=== PATIENT | male | born 1975 | race Caucasian/White ===

== ENCOUNTER 2017-05-20 15:04 | Outpatient (CLI) | payer MEDICAID | END 2017-05-20 15:05 | disposition critical access hospital (66) | LOC: EMS 15:04 | PROVIDERS: ATTEND Surgery | DX: R51 Headache (principal); R07.9 Chest pain, unspecified | CPT/HCPCS: A0425; A0427 ==

== ENCOUNTER 2017-05-20 15:37 | Emergency (ER) | payer MEDICAID ==
--- NOTE | 2017-05-20 16:14 | ED Physician Documentation ---
History of Present Illness - Stated complaint Stated Complaint: DIABETIC - Chief complaint Chief Complaint: General - History obtained from History obtained from: Patient (pt states that today he had episodes wher ethe left side fo his head was"going numb" and "tingling". states that it started a couple hours prior to arrival, states that he had some tingling to his left arm. states that he has been feeling "bad" for the past several months. states that he has had problems with keeping his blood sugar undercontrol.) Review of Systems Constitutional: reports: Chills, Fatigue. denies: Fever Eyes: denies: Loss of vision Cardiac: denies: Chest pain / pressure, Palpitations Respiratory: denies: Dyspnea GI: reports: Nausea. denies: Abdominal Pain, Vomiting, Constipation, Diarrhea : denies: Dysuria Skin: denies: Rash, Lesions Musculoskeletal: reports: Other (left arm numbness). denies: Neck pain, Back pain, Joint swelling Neurologic: reports: Other (left side of his head tingling.). denies: Generalized weakness, Headache PD PAST MEDICAL HISTORY - Past Medical History Cardiovascular: None Respiratory: None Neuro: Headache/migraine, Peripheral neuropathy Endocrine/Autoimmune: Type 1 diabetes GI: GERD : None HEENT: None Psych: Depression, Anxiety, Panic attacks Musculoskeletal: Osteoporosis, Chronic back pain Derm: None - Past Surgical History Past Surgical History: Yes General: Appendectomy, Colonoscopy Ortho: Rotator cuff repair Derm: Debridement - Present Medications Home Medications: Ambulatory Orders Medication Instructions Recorded Confirmed Gabapentin 300 mg PO ACHS 06/18/15 11/12/16 Insulin Glargine [Lantus Solostar] 18 unit SQ DAILY 06/18/15 11/12/16 Multivit-Min/Iron Fum/Folic AC 1 tab PO DAILY 06/18/15 11/12/16 [Pniwi-Qssodgy-Miyuxpsk Tablet] Pantoprazole [Protonix] 40 mg PO DAILY 06/18/15 11/12/16 Insulin Lispro [Humalog] 1 each .ROUTE .FREQ 09/22/15 11/12/16 diazePAM [Valium] 5 mg PO BID PRN #15 tablet 09/22/15 11/12/16 Azithromycin [Zithromax] 250 mg PO DAILY #6 tablet 11/12/16 Cephalexin [Keflex] 500 mg PO TID #21 capsule 11/16/16 Mupirocin 1 applic TP TID #15 oint...g. 11/16/16 Sulfamethox/Trimeth 800/160 1 each PO BID #14 tablet 11/16/16 [Bactrim Ds 800/160] - Allergies Allergies/Adverse Reactions: Allergies Allergy/AdvReac Type Severity Reaction Status Date / Time No Known Drug Allergies Allergy Verified 05/20/17 15:46 - Social History Does the pt smoke?: Yes Smoking Status: Current every day smoker Does the pt drink ETOH?: Yes Does the pt have substance abuse?: No - Immunizations Immunizations are current?: Yes - POLST Patient has POLST: No PD ED PE NORMAL - Vitals Vital signs reviewed: Yes - General General: Alert and oriented X 3, No acute distress - HEENT HEENT: Atraumatic, Ears normal, Moist mucous membranes, Pharynx benign - Neck Neck: Supple, no meningeal sign - Cardiac Cardiac: RRR, No murmur, No gallop - Respiratory Respiratory: No respiratory distress, Clear bilaterally - Abdomen Abdomen: Soft, Non tender - Back Back: No CVA TTP - Derm Derm: Normal color, Warm and dry, No rash - Extremities Extremities: No deformity, No edema - Neuro Neuro: Alert and oriented X 3, 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, No motor deficit, No sensory deficit, Normal speech Eye Opening: Spontaneous Motor: Obeys Commands Verbal: Oriented GCS Score: 15 - Psych Psych: Normal mood, Normal affect Results - Vitals Vitals: Vital Signs - 24 hr 05/20/17 05/20/17 05/20/17 15:41 17:36 18:55 Temperature 37.0 C Heart Rate 116 H 92 82 Respiratory 18 16 16 Rate Blood Pressure 136/95 H 108/68 114/80 O2 Saturation 98 97 100 05/20/17 20:29 Temperature Heart Rate 81 Respiratory 18 Rate Blood Pressure 123/81 H O2 Saturation 100 Oxygen O2 Source Room air - EKG (time done) 1543 Rate: Rate (enter#) Rhythm: Sinus tachycardia [place]: Normal Intervals: Normal [place], QRS normal QRS: Normal Ischemia: Normal ST segments - Labs Labs: Laboratory Tests 05/20/17 05/20/17 05/20/17 16:20 16:20 16:20 WBC 6.3 RBC 5.04 Hgb 14.6 Hct 44.2 MCV 87.7 MCH 29.0 MCHC 33.0 RDW 13.2 Plt Count 200 MPV 8.3 Neut # 4.1 Lymph # 1.5 Rock # 0.5 Eos # 0.1 Baso # 0.0 Absolute Nucleated RBC 0.00 Nucleated RBC % 0.0 Sodium 133 L Potassium 4.0 Chloride 97 L Carbon Dioxide 24 Anion Gap 12.0 BUN 13 Creatinine 0.6 Estimated GFR (MDRD) 148 Glucose 390 H POC Whole Bld Glucose Lactic Acid 0.9 Calcium 9.1 Phosphorus 3.4 Magnesium 1.7 Total Bilirubin 0.9 AST 15 ALT 20 Alkaline Phosphatase 69 Total Creatine Kinase 157 Total Protein 7.0 Albumin 4.2 Globulin 2.8 Albumin/Globulin Ratio 1.5 Lipase 16 L Urine Color Urine Clarity Urine pH Ur Specific [place] Urine Protein Urine Glucose (UA) Urine Ketones Urine Occult Blood Urine Nitrite Urine Bilirubin Urine Urobilinogen Ur Leukocyte Esterase Ur Microscopic Review Urine Culture Comments Serum Ketones 05/20/17 05/20/17 05/20/17 16:20 17:20 19:11 WBC RBC Hgb Hct MCV MCH MCHC RDW Plt Count MPV Neut # Lymph # Rock # Eos # Baso # Absolute Nucleated RBC Nucleated RBC % Sodium Potassium Chloride Carbon Dioxide Anion Gap BUN Creatinine Estimated GFR (MDRD) Glucose POC Whole Bld Glucose 245 H Lactic Acid Calcium Phosphorus Magnesium Total Bilirubin AST ALT Alkaline Phosphatase Total Creatine Kinase Total Protein Albumin Globulin Albumin/Globulin Ratio Lipase Urine Color YELLOW Urine Clarity CLEAR Urine pH 6.0 Ur Specific [place] 1.010 Urine Protein NEGATIVE Urine Glucose (UA) >=1000 H Urine Ketones NEGATIVE Urine Occult Blood NEGATIVE Urine Nitrite NEGATIVE Urine Bilirubin NEGATIVE Urine Urobilinogen 0.2 (NORMAL) Ur Leukocyte Esterase NEGATIVE Ur Microscopic Review NOT INDICATED Urine Culture Comments NOT INDICATED Serum Ketones SMALL H - Rads (name of study) Head CT Radiology: Final report received (no acute process), EMP read contemporaneously CXR Radiology: Final report received (no acute changes), EMP read contemporaneously PD MEDICAL DECISION MAKING - ED course Complexity details: reviewed results, re-evaluated patient, considered differential, d/w patient ED course: pt not in DKA, no sings of CVA, is hyperglycemic but inproved with fluids. pt reports improvement with fluids. discussed with him. CXR because he has been having pain off an on on that side for 5 months and he was concerned for cancer. discussed with him. he will contact his primary care provider for a follow up. Departure - Departure Disposition: 01 Home, Self Care Clinical Impression: Diabetes, Facial paresthesia Condition: Good Instructions: Hyperglycemia Follow-Up: primary, care provider [Other] Comments: Recommend that you contact a primary care provider in the this area to help with your blood sugar management. Return to the ER for any new or worsening symptoms.
[2017-05-20] MEDS ORDERED: SODIUM CHLORIDE 0.9% 1,000 ML IV ONE ×2 (16:15→17:39)
[2017-05-20 16:31] LABS: BASOPHILS % (AUTO) 0.5 %; EOSINOPHILS # (AUTO) 0.1 10^3/uL (0.0-0.7); EOSINOPHILS % (AUTO) 1.7 %; HGB - HEMOGLOBIN 14.6 g/dL (14.0-18.0); LYMPHOCYTES # (AUTO) 1.5 10^3/uL (1.5-3.5); LYMPHOCYTES % (AUTO) 23.9 %; MEAN CORPUSCULAR VOLUME 87.7 fL (80.0-94.0); MEAN PLATELET VOLUME 8.3 fL (7.4-11.4); MONOCYTES # (AUTO) 0.5 10^3/uL (0.0-1.0); MONOCYTES % (AUTO) 7.8 %; NEUTROPHILS # (AUTO) 4.1 10^3/uL (1.5-6.6); NEUTROPHILS % (AUTO) 66.1 %; PLT - PLATELET COUNT 200 10^3/uL (130-450); RED BLOOD COUNT 5.04 10^6/uL (4.70-6.10); RED CELL DISTRIBUTION WIDTH 13.2 % (12.0-15.0); WHITE BLOOD COUNT 6.3 x10^3/uL (4.8-10.8)
[2017-05-20 16:48] LABS: ALBUMIN 4.2 g/dL (3.2-5.5); ALBUMIN/GLOBULIN RATIO 1.5 (1.0-2.2); BILIRUBIN,TOTAL 0.9 mg/dL (0.2-1.0); CALCIUM 9.1 mg/dL (8.5-10.3); CREATININE 0.6 mg/dL (0.6-1.2); MAGNESIUM 1.7 mg/dL (1.7-2.8); PHOSPHORUS 3.4 mg/dL (2.5-4.6)
--- NOTE | 2017-05-20 16:48 | CT Report ---
EXAM: CT HEAD EXAM DATE: 05/20/2017 04:37 PM. CLINICAL HISTORY: Left sided numb. COMPARISON: 11/04/2014. TECHNIQUE: Multiaxial CT images were obtained from the foramen magnum to the vertex. Reformats: Coron al. IV contrast: None. In accordance with CT protocol optimization, one or more of the following dose reduction techniques w ere utilized for this exam: automated exposure control, adjustment of mA and/or KV based on patient s ize, or use of iterative reconstructive technique. FINDINGS: Parenchyma: No intraparenchymal hemorrhage. No evidence of mass, midline shift, or CT findings of inf arction. Plaza-white differentiation is distinct. Extraaxial Spaces: Normal for age. No subdural or epidural collections identified. Ventricles: Normal in size and position. Sinuses and Orbits: Imaged paranasal sinuses, orbits, and mastoids show no significant abnormality. Bones: No evidence of fracture or calvarial defect. Other: None. IMPRESSION: No acute intracranial abnormality. [facility] Referring Provider Line: [phone] SITE ID: [id number]
[2017-05-20 17:34] LABS: BILIRUBIN,URINE NEGATIVE (NEGATIVE); GLUCOSE, URINE (UA) >=1000 mg/dL (NEGATIVE); KETONES,URINE (UA) NEGATIVE (NEGATIVE); LEUKOCYTE ESTERASE, URINE NEGATIVE (NEGATIVE); NITRITE,URINE NEGATIVE (NEGATIVE); OCCULT BLOOD,URINE NEGATIVE (NEGATIVE); PROTEIN,URINE NEGATIVE (NEGATIVE); UROBILINOGEN,URINE 0.2 (NORMAL) E.U./dL (NORMAL)
[2017-05-20 17:39] LABS: CLARITY,URINE CLEAR (CLEAR)
--- NOTE | 2017-05-20 20:12 | XRAY Report ---
EXAM: CHEST RADIOGRAPHY EXAM DATE: 05/20/2017 07:50 PM. CLINICAL HISTORY: Cough. COMPARISON: None. TECHNIQUE: 2 views. FINDINGS: Lungs/Pleura: No focal opacities evident. No pleural effusion. No pneumothorax. Normal volumes. Mediastinum: Heart and mediastinal contours are unremarkable. Other: None. IMPRESSION: No acute intrathoracic plain film abnormality. [facility] Referring Provider Line: [phone] SITE ID: [id number]
[2017-05-20 20:29] VITALS: BP 123/81
== END 2017-05-20 20:52 | disposition home or self-care (01) ==
LOC: EDUNIT# → ED 15:37
DX: E10.42 Type 1 diabetes mellitus with diabetic polyneuropathy (principal); R00.0 Tachycardia, unspecified; F17.200 Nicotine dependence, unspecified, uncomplicated
CPT/HCPCS: 36415; 70450; 71046; 80053; 81001; 81003; 82009; 82550; 83605; 83690; 83735; 84100; 85025; 87086; 93005; 96360; 96361; 99284

== ENCOUNTER 2018-04-22 10:38 | Emergency (ER) | payer MEDICAID ==
[2018-04-22 10:47] VITALS: BP 149/93
--- NOTE | 2018-04-22 12:26 | ED Physician Documentation ---
History of Present Illness - Stated complaint Stated Complaint: PX ON BOTTOM OF FOOT/CONGESTION - Chief complaint Chief Complaint: Ext Problem - History obtained from History obtained from: Patient - History of Present Illness Timing: How many weeks ago (1) - Additonal information Additional information: 43-year-old male with a long-standing history of diabetes presents with a wound to the bottom of the left foot that he noticed approximately a week ago. Feels it is getting infected now. Has turned red. He tore a callus off the top of it last night. Also for the last 4 days has had rhinorrhea, congestion and a dry cough. No fevers. No vomiting. States his blood sugars are normally high anyway but it was up to 380 today which is not uncommon for him when he has an infection. Review of Systems Constitutional: denies: Fever, Chills Nose: reports: Rhinorrhea / runny nose, Congestion Respiratory: reports: Cough GI: denies: Vomiting Skin: denies: Rash Musculoskeletal: denies: Neck pain, Back pain Neurologic: denies: Headache PD PAST MEDICAL HISTORY - Past Medical History Cardiovascular: None Respiratory: None Endocrine/Autoimmune: Type 1 diabetes GI: GERD : None HEENT: None Psych: Depression, Anxiety, Panic attacks Musculoskeletal: Osteoporosis, Chronic back pain Derm: None - Past Surgical History Past Surgical History: Yes General: Appendectomy, Colonoscopy Ortho: Rotator cuff repair Derm: Debridement - Present Medications Home Medications: Ambulatory Orders Medication Instructions Recorded Confirmed Gabapentin 300 mg PO ACHS 06/18/15 11/12/16 Insulin Glargine [Lantus Solostar] 18 unit SQ DAILY 06/18/15 11/12/16 Insulin Lispro [Humalog] 1 each .ROUTE .FREQ 09/22/15 11/12/16 Cephalexin [Keflex] 500 mg PO Q6H #28 capsule 04/22/18 Pregabalin [Lyrica] 04/22/18 Sulfamethox/Trimeth 800/160 1 each PO BID #14 tablet 04/22/18 [Bactrim Ds 800/160] - Allergies Allergies/Adverse Reactions: Allergies Allergy/AdvReac Type Severity Reaction Status Date / Time No Known Drug Allergies Allergy Verified 04/22/18 10:47 - Social History Does the pt smoke?: Yes Smoking Status: Current every day smoker Does the pt drink ETOH?: Yes Does the pt have substance abuse?: No - Immunizations Immunizations are current?: Yes - POLST Patient has POLST: No PD ED PE NORMAL - Vitals Vital signs reviewed: Yes - General General: Alert and oriented X 3, No acute distress - HEENT HEENT: Moist mucous membranes, Pharynx benign, Other - Neck Neck: Supple, no meningeal sign - Cardiac Cardiac: RRR - Respiratory Respiratory: No respiratory distress, Clear bilaterally - Abdomen Abdomen: Soft, Non tender, Non distended - Derm Derm: Warm and dry - Extremities Extremities: Other (1cm, callus to the bottom of the foot between 4th adn 5th digits. mild erythema, no induration.) - Neuro Neuro: Alert and oriented X 3 Results - Vitals Vitals: Vital Signs - 24 hr 04/22/18 10:41 Temperature 36.3 C L Heart Rate 93 Respiratory 16 Rate Blood Pressure 149/93 H O2 Saturation 100 Oxygen O2 Source Room air PD MEDICAL DECISION MAKING - ED course Complexity details: considered differential, d/w patient ED course: 43-year-old diabetic male with what appears to be an early diabetic foot ulcer. Will start on Bactrim and Keflex and follow-up closely with his doctor. Also appears to have a viral upper respiratory infection. No evidence of pneumonia clinically. He is well-appearing, nontoxic. No evidence of sepsis. Patient counseled regarding signs and symptoms for which I believe and urgent re- evaluation would be necessary. Patient with good understanding of and agreement to plan and is comfortable going home at this time This document was made in part using voice recognition software. While efforts are made to proofread this document, sound alike and grammatical errors may occur. Departure - Departure Disposition: 01 Home, Self Care Clinical Impression: Viral URI Diabetic foot ulcer Qualifiers: Diabetic foot ulcer location: midfoot Diabetes mellitus type: type 1 Laterality: left Non-pressure ulcer stage: limited to breakdown of skin Qualified Code(s): E10.621 - Type 1 diabetes mellitus with foot ulcer Condition: Good Instructions: ED Foot Care Diabetic, ED URI Viral Follow-Up: your,doctor in 1 week [Other] Prescriptions: Cephalexin [Keflex] 500 mg PO Q6H #28 capsule Sulfamethox/Trimeth 800/160 [Bactrim Ds 800/160] 1 each PO BID #14 tablet Comments: Take all antibiotics until gone. Return if you worsen. It is important you follow-up with your doctor for further evaluation of your foot. You need to be rechecked within the next week.
== END 2018-04-22 12:41 | disposition home or self-care (01) ==
LOC: ED 10:38
DX: J06.9 Acute upper respiratory infection, unspecified (principal); B97.89 Other viral agents as the cause of diseases classified elsewhere; E10.621 Type 1 diabetes mellitus with foot ulcer; F17.200 Nicotine dependence, unspecified, uncomplicated
CPT/HCPCS: 99283

== ENCOUNTER 2018-06-14 19:11 | Emergency (ER) | payer MEDICAID ==
[2018-06-14 20:56] LABS: ALBUMIN 4.1 g/dL (3.2-5.5); ALBUMIN/GLOBULIN RATIO 1.4 (1.0-2.2); BASOPHILS # (AUTO) 0.2 10^3/uL (0.0-0.1); BASOPHILS % (AUTO) 2.6 %; BILIRUBIN,TOTAL 0.7 mg/dL (0.2-1.0); CALCIUM 9.1 mg/dL (8.5-10.3); CREATININE 0.8 mg/dL (0.6-1.2); EOSINOPHILS # (AUTO) 0.2 10^3/uL (0.0-0.7); EOSINOPHILS % (AUTO) 2.2 %; HGB - HEMOGLOBIN 14.3 g/dL (14.0-18.0); LYMPHOCYTES % (AUTO) 21.4 %; MEAN CORPUSCULAR HEMOGLOBIN 30.8 pg (27.0-31.0); MEAN CORPUSCULAR HGB CONC 34.5 g/dL (32.0-36.0); MEAN CORPUSCULAR VOLUME 89.1 fL (80.0-94.0); MEAN PLATELET VOLUME 8.4 fL (7.4-11.4); MONOCYTES # (AUTO) 0.7 10^3/uL (0.0-1.0); MONOCYTES % (AUTO) 7.8 %; NEUTROPHILS # (AUTO) 6.1 10^3/uL (1.5-6.6); PLT - PLATELET COUNT 168 10^3/uL (130-450); RED BLOOD COUNT 4.65 10^6/uL (4.70-6.10); RED CELL DISTRIBUTION WIDTH 13.3 % (12.0-15.0); TOTAL PROTEIN 7.1 g/dL (6.7-8.2); WHITE BLOOD COUNT 9.3 x10^3/uL (4.8-10.8)
--- NOTE | 2018-06-14 21:18 | XRAY Report ---
Reason: DM foot infection Procedure Date: 06/14/2018 Accession Number: [id number] / [id number] Procedure: XR - Foot 3 View LT CPT Code: FULL RESULT: EXAM: LEFT FOOT RADIOGRAPHY EXAM DATE: 06/14/2018 08:49 PM. CLINICAL HISTORY: Diabetic foot infection COMPARISON: None. TECHNIQUE: 3 views. FINDINGS: Bones: No fracture or focal bony lesion. Joints: No evidence of dislocation. Soft Tissues: There are vascular calcifications. There is rounded lucency which may represent soft tissue defect projecting over the plantar soft tissues of the distal lateral foot. IMPRESSION: No evidence of fracture or focal bony lesion. [facility]
[2018-06-14 21:34] LABS: DIFFERENTIAL COMMENT MANUAL=AUTO DIFF; PLATELET ESTIMATE, MANUAL NORMAL (130-450,000) (NORMAL); PLATELET MORPHOLOGY NORMAL APPEARANCE (NORMAL); RBC MORPHOLOGY (MULTIPLE) NORMAL APPEARANCE (NORMAL)
[2018-06-14] MEDS ORDERED: CIPROFLOXACIN 250 MG TABLET PO STA (21:50)
[2018-06-14] MEDS ORDERED: HYDROcod/ACET 5/325 Prepack 4 PO STA (21:50)
--- NOTE | 2018-06-14 21:53 | ED Physician Documentation ---
PD HPI WOUND RECHECK - Stated complaint Stated Complaint: BLACK SKIN ON FOOT - Chief complaint Chief Complaint: Wound - Histroy obtained from History obtained from: Patient, Family - History of Present Illness Location: Other (This is a long-standing type I diabetic who has had an ulcer on the left foot for several months now. He was on what sounds like Augmentin around [place]. He has an appoint with a fire protection engineer this Wednesday but he started to have increased redness and swelling of the foot today.) Review of Systems Constitutional: denies: Fever, Chills Cardiac: reports: Reviewed and negative Respiratory: reports: Reviewed and negative GI: reports: Reviewed and negative PD PAST MEDICAL HISTORY - Past Medical History Cardiovascular: None Respiratory: None Endocrine/Autoimmune: Type 1 diabetes GI: GERD : None HEENT: None Psych: Depression, Anxiety, Panic attacks Musculoskeletal: Osteoporosis, Chronic back pain Derm: None - Past Surgical History Past Surgical History: Yes General: Appendectomy, Colonoscopy Ortho: Rotator cuff repair Derm: Debridement - Present Medications Home Medications: Ambulatory Orders Medication Instructions Recorded Confirmed Insulin Glargine [Lantus Solostar] 18 unit SQ DAILY 06/18/15 11/12/16 RX: Gabapentin 300 mg PO ACHS 06/18/15 11/12/16 Insulin Lispro [Humalog] 1 each .ROUTE .FREQ 09/22/15 11/12/16 Cephalexin [Keflex] 500 mg PO Q6H #28 capsule 04/22/18 Pregabalin [Lyrica] 04/22/18 Sulfamethox/Trimeth 800/160 1 each PO BID #14 tablet 04/22/18 [Bactrim Ds 800/160] Ciprofloxacin HCl [Cipro] 500 mg PO BID #20 tablet 06/14/18 Hydrocodone/Acetaminophen 1 - 2 each PO Q6H PRN #7 tablet 06/14/18 [Hydrocodon-Acetaminophen 5-325] - Allergies Allergies/Adverse Reactions: Allergies Allergy/AdvReac Type Severity Reaction Status Date / Time No Known Drug Allergies Allergy Verified 06/14/18 19:23 - Social History Does the pt smoke?: Yes Smoking Status: Current every day smoker Does the pt drink ETOH?: Yes Does the pt have substance abuse?: No - Immunizations Immunizations are current?: Yes - POLST Patient has POLST: No PD ED PE NORMAL - Vitals Vital signs reviewed: Yes - General General: Alert and oriented X 3, No acute distress - Extremities Extremities: Other (There is a heaped up callus on the bottom of the left foot near the fourth metatarsal head. It is somewhat tender but there is no drainage. There is no gangrene. There is mild cellulitis just of the distal metatarsals.) - Neuro Neuro: Alert and oriented X 3, Normal speech Results - Vitals Vitals: Vital Signs - 24 hr 06/14/18 06/14/18 06/14/18 19:18 20:30 22:09 Temperature 37.6 C H 37.0 C Heart Rate 97 89 82 Respiratory 17 16 16 Rate Blood Pressure 123/79 127/80 125/74 O2 Saturation 100 100 100 Oxygen O2 Source Room air - Labs Labs: Laboratory Tests 06/14/18 06/14/18 06/14/18 20:39 20:39 20:39 WBC 9.3 RBC 4.65 L Hgb 14.3 Hct 41.4 L MCV 89.1 MCH 30.8 MCHC 34.5 RDW 13.3 Plt Count 168 MPV 8.4 Neut # (Auto) 6.1 Lymph # (Auto) 2.0 [place] # (Auto) 0.7 Eos # (Auto) 0.2 Baso # (Auto) 0.2 H Absolute Nucleated RBC 0.01 Band Neuts % (Manual) Not Reportable Abnorm Lymph % (Manual) Not Reportable Nucleated RBC % 0.1 Neutrophils # (Manual) Not Reportable Lymphocytes # (Manual) Not Reportable Monocytes # (Manual) Not Reportable Eosinophils # (Manual) Not Reportable Basophils # (Manual) Not Reportable Differential Comment MANUAL=AUTO DIFF Manual Slide Review Indicated Platelet Estimate NORMAL (130-450,000) Platelet Morphology NORMAL APPEARANCE RBC Morph Micro Appear NORMAL APPEARANCE ESR 2 Sodium 136 Potassium 4.2 Chloride 100 L Carbon Dioxide 28 Anion Gap 8.0 BUN 17 Creatinine 0.8 Estimated GFR (MDRD) 106 Glucose 323 H Calcium 9.1 Total Bilirubin 0.7 AST 13 ALT 21 Alkaline Phosphatase 91 C-Reactive Protein Total Protein 7.1 Albumin 4.1 Globulin 3.0 Albumin/Globulin Ratio 1.4 Lipase 19 L 06/14/18 20:39 WBC RBC Hgb Hct MCV MCH MCHC RDW Plt Count MPV Neut # (Auto) Lymph # (Auto) [place] # (Auto) Eos # (Auto) Baso # (Auto) Absolute Nucleated RBC Band Neuts % (Manual) Abnorm Lymph % (Manual) Nucleated RBC % Neutrophils # (Manual) Lymphocytes # (Manual) Monocytes # (Manual) Eosinophils # (Manual) Basophils # (Manual) Differential Comment Manual Slide Review Platelet Estimate Platelet Morphology RBC Morph Micro Appear ESR Sodium Potassium Chloride Carbon Dioxide Anion Gap BUN Creatinine Estimated GFR (MDRD) Glucose Calcium Total Bilirubin AST ALT Alkaline Phosphatase C-Reactive Protein < 1.0 Total Protein Albumin Globulin Albumin/Globulin Ratio Lipase - Rads (name of study) L foot Radiology: EMP read contemporaneously (STS, no obvious osteo) PD MEDICAL DECISION MAKING - ED course ED course: This is a 43-year-old gentleman with long-standing diabetes who has what appears to be a mild diabetic foot infection with reassuring inflammatory markers and a foot x-ray without evidence of deep involvement. He is placed on Cipro and he has an appointment with a fire protection engineer this week. Departure - Departure Disposition: 01 Home, Self Care Clinical Impression: Diabetic foot ulcer Qualifiers: Diabetic foot ulcer location: midfoot Diabetes mellitus type: type 1 Laterality: left Non-pressure ulcer stage: limited to breakdown of skin Qualified Code(s): E10.621 - Type 1 diabetes mellitus with foot ulcer Condition: Good Record reviewed to determine appropriate education?: Yes Prescriptions: Ciprofloxacin HCl [Cipro] 500 mg PO BID #20 tablet Hydrocodone/Acetaminophen [Hydrocodon-Acetaminophen 5-325] 1 - 2 each PO Q6H PRN #7 tablet PRN Reason: pain Comments: Followup with the fire protection engineer as scheduled later this week. Return if worse redness, fevers, uncontrolled pain. Discharge Date/Time: 06/14/18 22:10
[2018-06-14 22:10] VITALS: BP 125/74
== END 2018-06-14 22:10 | disposition home or self-care (01) ==
LOC: ED 19:11
DX: E10.621 Type 1 diabetes mellitus with foot ulcer (principal); L97.421 Non-pressure chronic ulcer of left heel and midfoot limited to breakdown of skin; Z79.4 Long term (current) use of insulin; L03.116 Cellulitis of left lower limb; L84 Corns and callosities; F17.200 Nicotine dependence, unspecified, uncomplicated
CPT/HCPCS: 36415; 73630; 80053; 83690; 85025; 85651; 86140; 99283; A9270

== ENCOUNTER 2018-06-15 19:24 | Inpatient (IN) | payer MEDICAID ==
[2018-06-15] MEDS ORDERED: PIPERACILLIN/TAZOBACTAM 3.375 GM in SODIUM CHLORIDE 0.9% MINIBAG 100 ML IV STA (20:19)
[2018-06-15] MEDS ORDERED: VANCOMYCIN INJ 1.5 GM in SODIUM CHLORIDE 0.9% 500 ML IV STA (20:19)
--- NOTE | 2018-06-15 20:21 | ED Physician Documentation ---
History of Present Illness - Stated complaint Stated Complaint: LT FOOT PX - Chief complaint Chief Complaint: General - History obtained from History obtained from: Patient, Family - History of Present Illness Timing: Today (This is a 43-year-old gentleman with long-standing type 1 diabetes who I saw yesterday for a diabetic left foot infection he was placed on Cipro. At that time his labs were very normal. Today he is become much sicker with fevers body aches and an area on the foot opened up and is draining foul- smelling fluid. Pain is uncontrolled.) Review of Systems Ten Systems: 10 systems reviewed and negative Constitutional: reports: Fever, Chills, Myalgias, Fatigue Throat: reports: Reviewed and negative Cardiac: reports: Reviewed and negative Respiratory: reports: Reviewed and negative PD PAST MEDICAL HISTORY - Past Medical History Cardiovascular: None Respiratory: None Endocrine/Autoimmune: Type 1 diabetes GI: GERD : None HEENT: None Psych: Depression, Anxiety, Panic attacks Musculoskeletal: Osteoporosis, Chronic back pain Derm: None - Past Surgical History Past Surgical History: Yes General: Appendectomy, Colonoscopy Ortho: Rotator cuff repair Derm: Debridement - Present Medications Home Medications: Ambulatory Orders Medication Instructions Recorded Confirmed Gabapentin 300 mg PO ACHS 06/18/15 11/12/16 Insulin Glargine [Lantus Solostar] 18 unit SQ DAILY 06/18/15 11/12/16 Insulin Lispro [Humalog] 1 each .ROUTE .FREQ 09/22/15 11/12/16 Cephalexin [Keflex] 500 mg PO Q6H #28 capsule 04/22/18 Pregabalin [Lyrica] 04/22/18 Sulfamethox/Trimeth 800/160 1 each PO BID #14 tablet 04/22/18 [Bactrim Ds 800/160] Ciprofloxacin HCl [Cipro] 500 mg PO BID #20 tablet 06/14/18 Hydrocodone/Acetaminophen 1 - 2 each PO Q6H PRN #7 tablet 06/14/18 [Hydrocodon-Acetaminophen 5-325] - Allergies Allergies/Adverse Reactions: Allergies Allergy/AdvReac Type Severity Reaction Status Date / Time No Known Drug Allergies Allergy Verified 06/15/18 19:35 - Social History Does the pt smoke?: Yes Smoking Status: Current every day smoker Does the pt drink ETOH?: Yes Does the pt have substance abuse?: No - Family History Family history: reports: Non contributory - Immunizations Immunizations are current?: Yes - POLST Patient has POLST: No PD ED PE NORMAL - Vitals Vital signs reviewed: Yes - General General: Alert and oriented X 3, No acute distress - HEENT HEENT: PERRL, EOMI - Neck Neck: Supple, no meningeal sign, No bony TTP - Cardiac Cardiac: RRR, No murmur - Respiratory Respiratory: No respiratory distress, Clear bilaterally - Abdomen Abdomen: Normal bowel sounds, Soft, Non tender - Back Back: No CVA TTP - Derm Derm: Normal color, Warm and dry - Extremities Extremities: Other (He still has a callus on the bottom of the foot near the fourth metatarsal head, there is a draining sinus in the webspace between the fourth and fifth toes that is freely draining foul-smelling fluid that was cultured during examination.) - Neuro Neuro: Alert and oriented X 3, Normal speech Results - Vitals Vitals: Vital Signs - 24 hr 06/15/18 06/15/18 19:31 19:47 Temperature 37.6 C H 37.0 C Heart Rate 125 H 115 H Respiratory 17 16 Rate Blood Pressure 164/97 H 144/91 H O2 Saturation 99 100 Oxygen O2 Source Room air - Labs Labs: Laboratory Tests 06/15/18 06/15/18 06/15/18 20:30 20:30 20:30 WBC 13.6 H RBC 5.07 Hgb 15.4 Hct 45.2 MCV 89.2 MCH 30.4 MCHC 34.0 RDW 13.5 Plt Count 179 MPV 8.8 Neut # (Auto) 10.1 H Lymph # (Auto) 2.0 [place] # (Auto) 1.1 H Eos # (Auto) 0.2 Baso # (Auto) 0.1 Absolute Nucleated RBC 0.00 Nucleated RBC % 0.0 ESR Sodium 137 Potassium 4.0 Chloride 98 L Carbon Dioxide 27 Anion Gap 12.0 BUN 16 Creatinine 0.8 Estimated GFR (MDRD) 106 Glucose 256 H Lactic Acid 1.7 Calcium 9.9 Total Bilirubin 0.6 AST 20 ALT 23 Alkaline Phosphatase 100 C-Reactive Protein Total Protein 8.5 H Albumin 4.9 Globulin 3.6 Albumin/Globulin Ratio 1.4 Lipase 19 L 06/15/18 06/15/18 20:30 20:30 WBC RBC Hgb Hct MCV MCH MCHC RDW Plt Count MPV Neut # (Auto) Lymph # (Auto) [place] # (Auto) Eos # (Auto) Baso # (Auto) Absolute Nucleated RBC Nucleated RBC % ESR 1 Sodium Potassium Chloride Carbon Dioxide Anion Gap BUN Creatinine Estimated GFR (MDRD) Glucose Lactic Acid Calcium Total Bilirubin AST ALT Alkaline Phosphatase C-Reactive Protein 1.6 H Total Protein Albumin Globulin Albumin/Globulin Ratio Lipase PD MEDICAL DECISION MAKING - ED course ED course: This is a 43-year-old gentleman with a diabetic foot infection, his labs yesterday were normal and he was discharged home on Cipro, he returns today now with fever, Rigors and worsening inflammatory markers. Case was discussed by phone with Dominic Abebe, the on-call orthopedist who recommends admission to the hospitalist for potential MRI tomorrow to guide operative planning. He was cultured up and placed on Zosyn and vancomycin. I spoke with the hospitalist, Dr. Mayo for admission at 9 PM. Departure - Departure Disposition: [facility] DC/Xfer Clinical Impression: Foot abscess, left Diabetes Qualifiers: Diabetes mellitus type: type 1 Diabetes mellitus complication status: with hyperglycemia Qualified Code(s): E10.65 - Type 1 diabetes mellitus with hyperglycemia Condition: Serious
[2018-06-15] MEDS ORDERED: HYDROmorphone 1 MG/ML CARPUJECT IVP STA ×2 (20:23→21:30)
[2018-06-15] MEDS ORDERED: HYDROcod/ACET 5/325 Prepack 4 PO STA (20:25)
[2018-06-15 20:42] LABS: BASOPHILS # (AUTO) 0.1 10^3/uL (0.0-0.1); BASOPHILS % (AUTO) 0.6 %; EOSINOPHILS # (AUTO) 0.2 10^3/uL (0.0-0.7); EOSINOPHILS % (AUTO) 1.5 %; HGB - HEMOGLOBIN 15.4 g/dL (14.0-18.0); MEAN CORPUSCULAR HEMOGLOBIN 30.4 pg (27.0-31.0); MEAN CORPUSCULAR VOLUME 89.2 fL (80.0-94.0); MEAN PLATELET VOLUME 8.8 fL (7.4-11.4); MONOCYTES # (AUTO) 1.1 10^3/uL (0.0-1.0); MONOCYTES % (AUTO) 8.2 %; NEUTROPHILS # (AUTO) 10.1 10^3/uL (1.5-6.6); NEUTROPHILS % (AUTO) 74.7 %; PLT - PLATELET COUNT 179 10^3/uL (130-450); RED BLOOD COUNT 5.07 10^6/uL (4.70-6.10); RED CELL DISTRIBUTION WIDTH 13.5 % (12.0-15.0); WHITE BLOOD COUNT 13.6 x10^3/uL (4.8-10.8)
[2018-06-15 20:55] LABS: ALBUMIN 4.9 g/dL (3.2-5.5); ALBUMIN/GLOBULIN RATIO 1.4 (1.0-2.2); BILIRUBIN,TOTAL 0.6 mg/dL (0.2-1.0); CALCIUM 9.9 mg/dL (8.5-10.3); CREATININE 0.8 mg/dL (0.6-1.2); TOTAL PROTEIN 8.5 g/dL (6.7-8.2)
[2018-06-15] MEDS ORDERED: ACETAMINOPHEN 325 MG TABLET PO PRN (21:09)
--- NOTE | 2018-06-15 21:23 | HISTORY & PHYSICAL EXAMINATION ---
Chief Complaint - Chief Complaint Chief Complaint: Persistent left foot pain with swelling and foul smelling drainage History of Present Illness - Admitted From Admitted From:: Home - History Obtained From Records Reviewed: Yes History obtained from: Patient and ED staff Exam Limitations: None - History of Present Illness HPI Comment/Other: This is a 43-year-old gentleman with long-standing type 1 diabetes, HTN with macro/micro complications (retinopathy, nephropathy and neuropathy) who was seen by ED yesterday for a diabetic left foot infection for which he was placed on Cipro At that time his labs were very normal. Today he is become much sicker with fevers body aches and an area on the foot opened up and is draining foul- smelling fluid. Blood and wound cultures were obtained. Pain is uncontrolled as well as sugars with a glucose of 256. WBC was 13.6, tachycardic at 125 and slightly hypertensive. Initial temp 37.6. Patient was started on empiric IV abx. Dr. Abebe from ortho consulted for possible underlying osteomyelitis to his left diabetic foot with an abscess formation and cellulites likely requiring surgical intervention. History - Past Medical History Cardiovascular: reports: None Respiratory: reports: None Endocrine/Autoimmune: reports: Type 1 diabetes GI: reports: GERD : reports: None HEENT: reports: None Psych: reports: Depression, Anxiety, Panic attacks Musculoskeletal: reports: Osteoporosis, Chronic back pain Derm: reports: None MRSA Hx?: No - Past Surgical History General: reports: Appendectomy, Colonoscopy Ortho: reports: Rotator cuff repair Neuro: reports: Other (IDDM neuropathy) Derm: reports: Debridement - POLST Patient has POLST: No Meds/Allgy - Home Medications Home Medications: Ambulatory Orders Medication Instructions Recorded Confirmed Gabapentin 300 mg PO ACHS 06/18/15 11/12/16 Insulin Glargine [Lantus Solostar] 18 unit SQ DAILY 06/18/15 11/12/16 Insulin Lispro [Humalog] 1 each .ROUTE .FREQ 09/22/15 11/12/16 Cephalexin [Keflex] 500 mg PO Q6H #28 capsule 04/22/18 Pregabalin [Lyrica] 04/22/18 Sulfamethox/Trimeth 800/160 1 each PO BID #14 tablet 04/22/18 [Bactrim Ds 800/160] Ciprofloxacin HCl [Cipro] 500 mg PO BID #20 tablet 06/14/18 Hydrocodone/Acetaminophen 1 - 2 each PO Q6H PRN #7 tablet 06/14/18 [Hydrocodon-Acetaminophen 5-325] - Allergies Allergies/Adverse Reactions: Allergies Allergy/AdvReac Type Severity Reaction Status Date / Time No Known Drug Allergies Allergy Verified 06/15/18 19:35 Review of Systems - Constitutional Constitutional: reports: Fatigue, Weakness, Poor appetite, Night sweats - Ears, Nose & Throat Ears, Nose & Throat: denies: Tinnitus, Vertigo - Cardiovascular Cariovascular: reports: Edema. denies: Irregular heart rate, Palpitations, Chest pain, Lightheadedness, Exertional dyspnea - Respiratory Respiratory: denies: Cough, Wheezing, Orthopnea, SOB at rest - Gastrointestinal Gastrointestinal: denies: Abdominal distention, Constipation, Change in bowel habits, Black stools, Nausea, Vomiting, Coffee grounds emesis, Reflux/heartburn - Genitourinary Genitourinary: denies: Dysuria, Frequency, Urgency, Incontinence, Flank pain, Nocturia - Musculoskeletal Musculoskeletal: reports: Muscle weakness, Joint swelling. denies: Muscle pain, Muscle aches, Stiffness, Gout, Joint pain - Integumentary Integumentary: reports: Rash (left foot), Lesions, Pigment changes - Neurological Neurological: denies: General weakness, Dizziness, Memory problems, Slurred speech - Psychiatric Psychiatric: denies: Depression, Anxiety, Hallucinations - Endocrine Endocrine: reports: Polyuria, Polydypsia, Polyphagia. denies: Intolerance to heat - Hematologic/Lymphatic Hematologic/Lymphatic: denies: Anemia, Blood clots, Lymphadenopathy Prior Level of Functionality: Independent to home ADL's Exam - Vital Signs Reviewed Vital Signs: Yes Vital Signs: Vital Signs x48h Temp Pulse Resp BP Pulse Ox 06/15/18 19:47 37.0 C 115 H 16 144/91 H 100 06/15/18 19:31 37.6 C H 125 H 17 164/97 H 99 - Physical Exam General Appearance: positive: No acute distress, Alert, Anxious Eyes Bilateral: positive: Normal inspection, PERRL, EOMI ENT: positive: ENT inspection nml, Pharynx nml, No signs of dehydration Neck: positive: Nml inspection, Thyroid nml, No JVD, Trachea midline. negative: Thyromegaly Respiratory: positive: Chest non-tender, No respiratory distress, Breath sounds nml Cardiovascular: positive: Regular rate & rhythm, No murmur, No gallop, Tachycardia. negative: JVD present Peripheral Pulses: positive: 1+ Abdomen: positive: Non-tender, No organomegaly, Nml bowel sounds, No distention. negative: Tenderness Skin: positive: Warm, Other (Left dorsum erythematous lesion. left ulceration to 4th/5th space/abscess formation with foul-smelling purulent drainage) Extremities: positive: Full ROM, Joint swelling, Other (Tender over plantar surface with 2x2 cm callus formation with apparant left 5th digit tenderness on manipulation. Dorsum of left foot erythematous.) Neurologic/Psychiatric: positive: Oriented x3, CN's nml (2-12), Sensory loss (to plantar aspect BLLE). negative: Slurred/abnml speech, Depressed mood/affect Sepsis Event Note (H) - Evaluation Current Stage of Sepsis: Sepsis Possible source of Sepsis: positive: Skin/soft tissue Confirmed Source and Organism (if known) of Sepsis: Left non-healing foot ulcer with abscess formation and possible underlying chronic osteomyelitis - Sepsis Criteria Sepsis Criteria: Recorded Heart Rate greater than 90 bpm (CRP 1.6), WBC count greater than 12,000 or less than 4000 Conclusion/Plan - Problem List (1) Sepsis Conclusion/Plan: Secondary to diabetic foot abscess with suspected underlying chronic osteomyelitis. Would continue "ear;y-goal directed" treatment with IV abx's, fluids, pain control and follow up on blood and wound cultures taken in ED. MRI of left foot in am to determine extent of soft tissue, bone infection if present. Surgical debridement likely anticipated. Qualifiers: Sepsis type: sepsis due to unspecified organism Qualified Code(s): A41.9 - Sepsis, unspecified organism (2) Chronic osteomyelitis Conclusion/Plan: Left foot chronic osteomyelitis suspected due to patients chronicity of months of left foot pain with associated non-healing diabetic foot ulcer between the 4th/5th digit with now foul-smelling purulent drainage. MRI in am to definitively show evidence for this, ESR, CRP ordered. On empiric IV abx zosyn and vanco to cover for MRSA/MSSA and anaerobes. Wound culture to follow from purulent drainage of wound site. (3) Diabetes mellitus, insulin dependent (IDDM), uncontrolled Conclusion/Plan: Patient saw PCP in early may with a HgbA1c of approximately 10%, ws 10.3 back in 06/01/15, uncontrolled and with now glycemic excursions in the setting of left foot abscess and pain which are causing hyperglycemic excursions. Would place back on his Lantus solostar 18 units sq daily along with correctional ISS high dose for bolus coverage. Diabetic education and teaching, dietitian consult placed. Qualifiers: Glycemic state: with hyperglycemia Qualified Code(s): E10.65 - Type 1 diabetes mellitus with hyperglycemia (4) Left foot pain Conclusion/Plan: Place on morphine and oxycodone for break-through pain. Has underlying "painful" Diabetic neuropathy for which he takes gabapentin, would titrate to therapeutic goal. (5) Diabetic neuropathy associated with type 1 diabetes mellitus Conclusion/Plan: Resume Neurontin and titrate to therapeutic goal. Qualifiers: Diabetes mellitus complication detail: diabetic polyneuropathy Qualified Code(s): E10.42 - Type 1 diabetes mellitus with diabetic polyneuropathy (6) HTN (hypertension) Conclusion/Plan: Place on lopressor or GENA-inh with existing DM nephropathy to control for BP excursions which likely are infectious/pain-induced. (7) Foot abscess, left Conclusion/Plan: Likely will require incision, drainage and debridement of infectious tissue and dependent on MRI result if osteomyelitis is present may need amputation of affected bone. Wound cultures as well as blood cultures to follow. Wound care consult will be placed. Empiric IV abx's to continue, pharm consult for vanco dosing. Pain control, glycemic control. (8) Tobacco dependence Conclusion/Plan: Chronic pipe-tobacco use. Likely contributing to his poor circulation and compounding his healing process of his left foot cellulitis/abscess. Would educate and sales counselor on smoking cessation and offer nicotine replacement tx. - Lab Results Fish Bones: 06/15/18 20:30 06/15/18 20:30 - EKG Results EKG Interpreted Independently: No Core Measures - Anticipated LOS I expect patient to be DC'd or transferred within 96 hours.: Yes - Issues Hospital Issues and Management Plan: IV abx's, fluids, glycemic control, surgical I/D/D needed. - DVT/VTE - Prophylaxis VTE/DVT Device ordered at admit?: Yes VTE/DVT Prophylaxis med ordered at admit?: Yes - Stroke - Rehab Assessment Rehab services assessment to be ordered?: No Not Ordered - Medical Reason: Not indicated - AMI - Statin at Admit Aspirin Prescribed on Admit: Yes
[2018-06-15] MEDS ORDERED: ASPIRIN CHEW 81 MG TABLET PO STA (21:31)
[2018-06-15] MEDS ORDERED: NICOTINE 21 MG PATCH TOP STA (21:35)
[2018-06-15 21:57] LABS: HB2 TOTAL 16.6 g/dL; HEMOGLOBIN A1C 1.41 g/dL; HEMOGLOBIN A1C % 9.9 % (4.6-6.2)
[2018-06-15] MEDS: METOPROLOL TARTRATE 25 MG TABLET PO SCH (22:52)
[2018-06-15] MEDS: SODIUM CHLORIDE 0.9% 1,000 ML IV SCH (22:52)
[2018-06-15] MEDS: MORPHINE 2 MG/ML CARPUJECT IVP PRN (22:52)
[2018-06-15] MEDS: INSULIN ASPART 300 UNIT/3 ML PEN SUBQ SCH (23:20)
[2018-06-15] MEDS: GABAPENTIN 300 MG CAPSULE PO SCH (23:54)
[2018-06-16] MEDS: MORPHINE 2 MG/ML CARPUJECT IVP PRN ×3 (01:11→04:38)
[2018-06-16] MEDS: SODIUM CHLORIDE FLUSH 0.9% 10 ML SYRINGE IVP SCH ×3 (01:17→17:12)
[2018-06-16] MEDS: PIPERACILLIN/TAZOBACTAM 4.5 GM in SODIUM CHLORIDE 0.9% MINIBAG 100 ML IV SCH ×4 (02:23→21:14)
[2018-06-16] MEDS: oxyCODONE 5 MG TABLET PO PRN ×3 (04:43→12:10)
[2018-06-16 06:02] LABS: BASOPHILS % (AUTO) 0.6 %; EOSINOPHILS # (AUTO) 0.2 10^3/uL (0.0-0.7); EOSINOPHILS % (AUTO) 2.5 %; HGB - HEMOGLOBIN 13.7 g/dL (14.0-18.0); LYMPHOCYTES # (AUTO) 2.2 10^3/uL (1.5-3.5); LYMPHOCYTES % (AUTO) 26.5 %; MEAN CORPUSCULAR HEMOGLOBIN 29.8 pg (27.0-31.0); MEAN CORPUSCULAR HGB CONC 32.5 g/dL (32.0-36.0); MEAN CORPUSCULAR VOLUME 91.5 fL (80.0-94.0); MONOCYTES # (AUTO) 0.8 10^3/uL (0.0-1.0); MONOCYTES % (AUTO) 9.7 %; NEUTROPHILS % (AUTO) 60.7 %; PLT - PLATELET COUNT 153 10^3/uL (130-450); RED CELL DISTRIBUTION WIDTH 13.4 % (12.0-15.0); WHITE BLOOD COUNT 8.2 x10^3/uL (4.8-10.8)
[2018-06-16 06:14] LABS: CHOL/HDL RATIO 2.8 (<5.0); CHOLESTEROL 115 mg/dL; HDL CHOLESTEROL 41 mg/dL; LDL CHOLESTEROL,CALCULATED 58 mg/dL; LDL/HDL RATIO 1.4 (<3.6); VLDL CHOLESTEROL 16 mg/dL
[2018-06-16 06:45] LABS: ALBUMIN 3.7 g/dL (3.2-5.5); CALCIUM 8.6 mg/dL (8.5-10.3); CREATININE 0.6 mg/dL (0.6-1.2); PHOSPHORUS 3.4 mg/dL (2.5-4.6)
[2018-06-16] MEDS: GABAPENTIN 300 MG CAPSULE PO SCH ×4 (06:59→21:49)
[2018-06-16] MEDS: HYDROmorphone 1 MG/ML SYRINGE IVP PRN ×2 (06:59→11:38)
[2018-06-16] MEDS ORDERED: GABAPENTIN 300 MG CAPSULE PO SCH (07:00)
--- NOTE | 2018-06-16 07:51 | PROVIDER PROGRESS NOTE ---
Subjective - Prog Note Date Prog Note Date: 06/16/18 Prog Note Time: 07:49 - Subjective Subjective: saw a boiler operators supervisor thru [employer] for 5 years when lived in [place] who used a drill to get rid of calluses. Then came here 4 years ago and saw [facility] boiler operators supervisor who didn't believe in that. Then one didn't take his insurance. Has a new appt with one in [facility]. Occasionally looks at this feet. A1c has not been below 7% ever. DM has been for 30 years. Painful neuropathy. 2 laser surgeries for eyes. Willing to go on dialysis. Smokes tobacco. Occasionally drinks. No recreational abuse. Checks sugars 6 times. Counts carbs. Stays on fixed dose of lantus and goes up and down on short acting. Dr. Van Zafar is coming of lantus for him bc getting more lows. 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 This is his first diabetic foot infection. Current Medications - Current Medications Current Medications: Active Medications Acetaminophen (Tylenol) 650 mg PO Q4HR PRN PRN Reason: Pain 1 to 4 Last Admin: 06/16/18 02:23 Dose: 650 mg Atorvastatin Calcium (Lipitor) 40 mg PO QPM FELA Duloxetine HCl (Cymbalta) 60 mg PO QPM FELA Enoxaparin Sodium (Lovenox) 40 mg SUBQ DAILY FELA Famotidine (Pepcid) 20 mg PO BID FELA Gabapentin (Neurontin) 600 mg PO ACHS [facility] Last Admin: 06/16/18 06:59 Dose: 600 mg Hydromorphone HCl (Dilaudid Inj Syringe) 2 mg IVP Q2H PRN PRN Reason: PAIN Last Admin: 06/16/18 06:59 Dose: 2 mg Piperacillin Sod/Tazobactam (Sod 4.5 gm/ Sodium Chloride) 100 mls @ 200 mls/hr IV Q6H [facility] Last Infusion: 06/16/18 03:00 Dose: Infused Sodium Chloride (Normal Saline 0.9%) 1,000 mls @ 75 mls/hr IV .[id number] [facility] Last Infusion: 06/16/18 07:00 Dose: 75 mls/hr Vancomycin HCl 1.5 gm/ Sodium (Chloride) 500 mls @ 250 mls/hr IV Q12H [facility] Insulin Aspart (Novolog) 3 - 11 unit SUBQ 0800,1200,1700,2100 [facility]; Protocol Last Admin: 06/15/18 23:20 Dose: 5 unit Insulin Glargine (Lantus Solostar) 18 unit SUBQ DAILY [facility] Metoprolol Tartrate (Lopressor) 12.5 mg PO BID [facility] Last Admin: 06/15/18 22:52 Dose: 12.5 mg Ondansetron HCl (Zofran Odt) 4 mg TL Q6HR PRN PRN Reason: Nausea / Vomiting Oxycodone HCl (Roxicodone) 5 mg PO Q4HR PRN PRN Reason: Pain 5 to 7 Last Admin: 06/16/18 04:43 Dose: 5 mg Polyethylene Glycol (Miralax) 17 gm PO DAILY [facility] Prochlorperazine Edisylate (Compazine Inj) 10 mg IVP Q6HR PRN PRN Reason: Nausea / Vomiting Sodium Chloride (Normal Saline Flush 0.9%) 10 ml IVP PRN PRN PRN Reason: NEEDED PER PROVIDER ORDERS Sodium Chloride (Normal Saline Flush 0.9%) 10 ml IVP 0100,0900,1700 [facility] Last Admin: 06/16/18 01:17 Dose: Not Given Gabapentin 300 mg PO ACHS 06/18/15 Insulin Glargine [Lantus Solostar] 18 unit SQ DAILY 06/18/15 Insulin Lispro [Humalog] 1 each .ROUTE .FREQ 09/22/15 Pregabalin [Lyrica] 04/22/18 Objective - Vital Signs/Intake & Output Reviewed Vital Signs: Yes Vital Signs: Vital Signs x48h Temp Pulse Resp BP Pulse Ox 06/16/18 07:02 79 11 L 124/89 H 100 06/16/18 06:00 75 10 L 123/77 100 06/16/18 05:00 77 12 132/88 H 100 06/16/18 04:00 76 10 L 111/67 99 06/16/18 03:00 36.8 C 76 14 109/68 99 06/16/18 02:00 73 13 112/75 99 06/16/18 01:00 84 14 124/82 H 100 06/16/18 00:00 89 17 110/91 H 100 Intake & Output: Intake & Output 06/13/18 06/14/18 06/15/18 06/16/18 23:59 23:59 23:59 23:59 Intake Total 100 1666.25 Output Total 800 600 Balance -700 1066.25 - Objective General Appearance: positive: Alert, Other (Thin, cachectic male is 6 feet 2 inches tall 68 kg. Disheveled appearance with a long untrimmed deshpande to goes down to his lower sternum.) Eyes Bilateral: positive: PERRL, EOMI ENT: positive: Pharynx nml, Other (Poor dentition) Neck: positive: No JVD. negative: Stiff neck, Carotid bruit Respiratory: positive: Chest non-tender. negative: Wheezes, Rales, Rhonchi Cardiovascular: positive: Regular rate & rhythm. negative: Gallop/S4, Friction rub Abdomen: positive: Non-tender, No organomegaly, Nml bowel sounds, No distention Skin: positive: Warm, Dry Extremities: positive: Full ROM, No pedal edema, Other ( remember the name the webspace between his fourth and fifth toe left foot is draining. There is a little bit of redness that goes up approximately toward the tib-fib area but is only up to one third of the foot. While there is superficial edema surrounding this puncture area, there is no ascending cellulitis, of the ankle around the malleoli is not edematous. He can plantar and dorsiflex his left foot.) Neurologic/Psychiatric: positive: Oriented x3, CN's nml (2-12), Motor nml. negative: Sensation nml (Burning prickly paresthesias of feet and hands) - Lab Results Fish Bones: 06/16/18 05:10 06/16/18 05:10 Other Labs: Lab Results x24hrs 06/16/18 06/16/18 06/16/18 Range/Units 05:10 05:10 05:10 WBC (4.8-10.8) x10^3/uL RBC (4.70-6.10) 10^6/uL Hgb (14.0-18.0) g/dL Hct (42.0-52.0) % MCV (80.0-94.0) fL MCH (27.0-31.0) pg MCHC (32.0-36.0) g/dL RDW (12.0-15.0) % Plt Count (130-450) 10^3/uL MPV (7.4-11.4) fL Neut # (Auto) (1.5-6.6) 10^3/uL Lymph # (Auto) (1.5-3.5) 10^3/uL [place] # (Auto) (0.0-1.0) 10^3/uL Eos # (Auto) (0.0-0.7) 10^3/uL Baso # (Auto) (0.0-0.1) 10^3/uL Absolute Nucleated RBC x10^3/uL Nucleated RBC % /100WBC ESR 7 (0-15) mm/Hr Sodium 135 (135-145) mmol/L Potassium 3.6 (3.5-5.0) mmol/L Chloride 98 L (101-111) mmol/L Carbon Dioxide 29 (21-32) mmol/L Anion Gap 8.0 (6-13) BUN 12 (6-20) mg/dL Creatinine 0.6 (0.6-1.2) mg/dL Estimated GFR (MDRD) 148 (>89) Glucose 195 H (70-100) mg/dL POC Whole Bld Glucose (70 - 100) mg/dL Glycated Hemoglobin (4.6-6.2) % Estim Average Glucose (70-100) Lactic Acid (0.5-2.2) mmol/L Calcium 8.6 (8.5-10.3) mg/dL Phosphorus 3.4 (2.5-4.6) mg/dL Iron 37 L (45-182) ug/dL TIBC 252 (250-450) ug/dL % Saturation 15 L (20-50) % Transferrin 180 (180-329) mg/dL Total Bilirubin (0.2-1.0) mg/dL AST (10-42) IU/L ALT (10-60) IU/L Alkaline Phosphatase (42-121) IU/L C-Reactive Protein (0-1.0) mg/dL Total Protein (6.7-8.2) g/dL Albumin 3.7 (3.2-5.5) g/dL Globulin (2.1-4.2) g/dL Albumin/Globulin Ratio (1.0-2.2) Triglycerides 82 ( - 149) mg/dL Cholesterol 115 ( - 199) mg/dL LDL Cholesterol, Calc 58 ( - 129) mg/dL VLDL Cholesterol 16 mg/dL HDL Cholesterol 41 L (60 - ) mg/dL LDL/HDL Ratio 1.4 (<3.6) Cholesterol/HDL Ratio 2.8 (<5.0) Lipase (22-51) U/L Influenza A (Rapid) (Negative) Influenza B (Rapid) (Negative) MRSA Surveill Initial (NEGATIVE) 06/16/18 06/15/18 06/15/18 Range/Units 05:10 22:57 22:00 WBC 8.2 (4.8-10.8) x10^3/uL RBC 4.60 L (4.70-6.10) 10^6/uL Hgb 13.7 L (14.0-18.0) g/dL Hct 42.1 (42.0-52.0) % MCV 91.5 (80.0-94.0) fL MCH 29.8 (27.0-31.0) pg MCHC 32.5 (32.0-36.0) g/dL RDW 13.4 (12.0-15.0) % Plt Count 153 (130-450) 10^3/uL MPV 9.0 (7.4-11.4) fL Neut # (Auto) 5.0 (1.5-6.6) 10^3/uL Lymph # (Auto) 2.2 (1.5-3.5) 10^3/uL [place] # (Auto) 0.8 (0.0-1.0) 10^3/uL Eos # (Auto) 0.2 (0.0-0.7) 10^3/uL Baso # (Auto) 0.0 (0.0-0.1) 10^3/uL Absolute Nucleated RBC 0.01 x10^3/uL Nucleated RBC % 0.1 /100WBC ESR (0-15) mm/Hr Sodium (135-145) mmol/L Potassium (3.5-5.0) mmol/L Chloride (101-111) mmol/L Carbon Dioxide (21-32) mmol/L Anion Gap (6-13) BUN (6-20) mg/dL Creatinine (0.6-1.2) mg/dL Estimated GFR (MDRD) (>89) Glucose (70-100) mg/dL POC Whole Bld Glucose 183 H (70 - 100) mg/dL Glycated Hemoglobin (4.6-6.2) % Estim Average Glucose (70-100) Lactic Acid (0.5-2.2) mmol/L Calcium (8.5-10.3) mg/dL Phosphorus (2.5-4.6) mg/dL Iron (45-182) ug/dL TIBC (250-450) ug/dL % Saturation (20-50) % Transferrin (180-329) mg/dL Total Bilirubin (0.2-1.0) mg/dL AST (10-42) IU/L ALT (10-60) IU/L Alkaline Phosphatase (42-121) IU/L C-Reactive Protein (0-1.0) mg/dL Total Protein (6.7-8.2) g/dL Albumin (3.2-5.5) g/dL Globulin (2.1-4.2) g/dL Albumin/Globulin Ratio (1.0-2.2) Triglycerides ( - 149) mg/dL Cholesterol ( - 199) mg/dL LDL Cholesterol, Calc ( - 129) mg/dL VLDL Cholesterol mg/dL HDL Cholesterol (60 - ) mg/dL LDL/HDL Ratio (<3.6) Cholesterol/HDL Ratio (<5.0) Lipase (22-51) U/L Influenza A (Rapid) (Negative) Influenza B (Rapid) (Negative) MRSA Surveill Initial NEGATIVE (NEGATIVE) 06/15/18 06/15/18 06/15/18 Range/Units 20:30 20:30 20:30 WBC (4.8-10.8) x10^3/uL RBC (4.70-6.10) 10^6/uL Hgb (14.0-18.0) g/dL Hct (42.0-52.0) % MCV (80.0-94.0) fL MCH (27.0-31.0) pg MCHC (32.0-36.0) g/dL RDW (12.0-15.0) % Plt Count (130-450) 10^3/uL MPV (7.4-11.4) fL Neut # (Auto) (1.5-6.6) 10^3/uL Lymph # (Auto) (1.5-3.5) 10^3/uL [place] # (Auto) (0.0-1.0) 10^3/uL Eos # (Auto) (0.0-0.7) 10^3/uL Baso # (Auto) (0.0-0.1) 10^3/uL Absolute Nucleated RBC x10^3/uL Nucleated RBC % /100WBC ESR 1 (0-15) mm/Hr Sodium (135-145) mmol/L Potassium (3.5-5.0) mmol/L Chloride (101-111) mmol/L Carbon Dioxide (21-32) mmol/L Anion Gap (6-13) BUN (6-20) mg/dL Creatinine (0.6-1.2) mg/dL Estimated GFR (MDRD) (>89) Glucose (70-100) mg/dL POC Whole Bld Glucose (70 - 100) mg/dL Glycated Hemoglobin 9.9 H (4.6-6.2) % Estim Average Glucose 237 H (70-100) Lactic Acid (0.5-2.2) mmol/L Calcium (8.5-10.3) mg/dL Phosphorus (2.5-4.6) mg/dL Iron (45-182) ug/dL TIBC (250-450) ug/dL % Saturation (20-50) % Transferrin (180-329) mg/dL Total Bilirubin (0.2-1.0) mg/dL AST (10-42) IU/L ALT (10-60) IU/L Alkaline Phosphatase (42-121) IU/L C-Reactive Protein 1.6 H (0-1.0) mg/dL Total Protein (6.7-8.2) g/dL Albumin (3.2-5.5) g/dL Globulin (2.1-4.2) g/dL Albumin/Globulin Ratio (1.0-2.2) Triglycerides ( - 149) mg/dL Cholesterol ( - 199) mg/dL LDL Cholesterol, Calc ( - 129) mg/dL VLDL Cholesterol mg/dL HDL Cholesterol (60 - ) mg/dL LDL/HDL Ratio (<3.6) Cholesterol/HDL Ratio (<5.0) Lipase (22-51) U/L Influenza A (Rapid) (Negative) Influenza B (Rapid) (Negative) MRSA Surveill Initial (NEGATIVE) 06/15/18 06/15/18 06/15/18 Range/Units 20:30 20:30 20:30 WBC 13.6 H (4.8-10.8) x10^3/uL RBC 5.07 (4.70-6.10) 10^6/uL Hgb 15.4 (14.0-18.0) g/dL Hct 45.2 (42.0-52.0) % MCV 89.2 (80.0-94.0) fL MCH 30.4 (27.0-31.0) pg MCHC 34.0 (32.0-36.0) g/dL RDW 13.5 (12.0-15.0) % Plt Count 179 (130-450) 10^3/uL MPV 8.8 (7.4-11.4) fL Neut # (Auto) 10.1 H (1.5-6.6) 10^3/uL Lymph # (Auto) 2.0 (1.5-3.5) 10^3/uL [place] # (Auto) 1.1 H (0.0-1.0) 10^3/uL Eos # (Auto) 0.2 (0.0-0.7) 10^3/uL Baso # (Auto) 0.1 (0.0-0.1) 10^3/uL Absolute Nucleated RBC 0.00 x10^3/uL Nucleated RBC % 0.0 /100WBC ESR (0-15) mm/Hr Sodium 137 (135-145) mmol/L Potassium 4.0 (3.5-5.0) mmol/L Chloride 98 L (101-111) mmol/L Carbon Dioxide 27 (21-32) mmol/L Anion Gap 12.0 (6-13) BUN 16 (6-20) mg/dL Creatinine 0.8 (0.6-1.2) mg/dL Estimated GFR (MDRD) 106 (>89) Glucose 256 H (70-100) mg/dL POC Whole Bld Glucose (70 - 100) mg/dL Glycated Hemoglobin (4.6-6.2) % Estim Average Glucose (70-100) Lactic Acid 1.7 (0.5-2.2) mmol/L Calcium 9.9 (8.5-10.3) mg/dL Phosphorus (2.5-4.6) mg/dL Iron (45-182) ug/dL TIBC (250-450) ug/dL % Saturation (20-50) % Transferrin (180-329) mg/dL Total Bilirubin 0.6 (0.2-1.0) mg/dL AST 20 (10-42) IU/L ALT 23 (10-60) IU/L Alkaline Phosphatase 100 (42-121) IU/L C-Reactive Protein (0-1.0) mg/dL Total Protein 8.5 H (6.7-8.2) g/dL Albumin 4.9 (3.2-5.5) g/dL Globulin 3.6 (2.1-4.2) g/dL Albumin/Globulin Ratio 1.4 (1.0-2.2) Triglycerides ( - 149) mg/dL Cholesterol ( - 199) mg/dL LDL Cholesterol, Calc ( - 129) mg/dL VLDL Cholesterol mg/dL HDL Cholesterol (60 - ) mg/dL LDL/HDL Ratio (<3.6) Cholesterol/HDL Ratio (<5.0) Lipase 19 L (22-51) U/L Influenza A (Rapid) (Negative) Influenza B (Rapid) (Negative) MRSA Surveill Initial (NEGATIVE) 06/15/18 Range/Units 20:22 WBC (4.8-10.8) x10^3/uL RBC (4.70-6.10) 10^6/uL Hgb (14.0-18.0) g/dL Hct (42.0-52.0) % MCV (80.0-94.0) fL MCH (27.0-31.0) pg MCHC (32.0-36.0) g/dL RDW (12.0-15.0) % Plt Count (130-450) 10^3/uL MPV (7.4-11.4) fL Neut # (Auto) (1.5-6.6) 10^3/uL Lymph # (Auto) (1.5-3.5) 10^3/uL [place] # (Auto) (0.0-1.0) 10^3/uL Eos # (Auto) (0.0-0.7) 10^3/uL Baso # (Auto) (0.0-0.1) 10^3/uL Absolute Nucleated RBC x10^3/uL Nucleated RBC % /100WBC ESR (0-15) mm/Hr Sodium (135-145) mmol/L Potassium (3.5-5.0) mmol/L Chloride (101-111) mmol/L Carbon Dioxide (21-32) mmol/L Anion Gap (6-13) BUN (6-20) mg/dL Creatinine (0.6-1.2) mg/dL Estimated GFR (MDRD) (>89) Glucose (70-100) mg/dL POC Whole Bld Glucose (70 - 100) mg/dL Glycated Hemoglobin (4.6-6.2) % Estim Average Glucose (70-100) Lactic Acid (0.5-2.2) mmol/L Calcium (8.5-10.3) mg/dL Phosphorus (2.5-4.6) mg/dL Iron (45-182) ug/dL TIBC (250-450) ug/dL % Saturation (20-50) % Transferrin (180-329) mg/dL Total Bilirubin (0.2-1.0) mg/dL AST (10-42) IU/L ALT (10-60) IU/L Alkaline Phosphatase (42-121) IU/L C-Reactive Protein (0-1.0) mg/dL Total Protein (6.7-8.2) g/dL Albumin (3.2-5.5) g/dL Globulin (2.1-4.2) g/dL Albumin/Globulin Ratio (1.0-2.2) Triglycerides ( - 149) mg/dL Cholesterol ( - 199) mg/dL LDL Cholesterol, Calc ( - 129) mg/dL VLDL Cholesterol mg/dL HDL Cholesterol (60 - ) mg/dL LDL/HDL Ratio (<3.6) Cholesterol/HDL Ratio (<5.0) Lipase (22-51) U/L Influenza A (Rapid) Negative (Negative) Influenza B (Rapid) Negative (Negative) MRSA Surveill Initial (NEGATIVE) - Diagnostic Imaging Diagnostic Imaging Results: positive: Final report reviewed Diagnostic Imaging Comments: MRI of the ankle and foot shows subcutaneous edema and swelling of the dorsal aspect of the left foot. Mild focal subcutaneous edema at the plantar aspect of the fourth webspace representing cellulitis. No drainable abscess seen. No evidence of osteomyelitis. First interphalangeal joint osteoarthritis. Edema and enhancement within the visualized muscles representing strain or myositis. ABX Reporting Has patient been on IV antibiotics over the past 48 hours?: Yes Sepsis Event Note (H) - Evaluation Current Stage of Sepsis: Resolved Possible source of Sepsis: positive: Skin/soft tissue - Sepsis Criteria Sepsis Criteria: Recorded Heart Rate greater than 90 bpm (CRP 1.6), WBC count greater than 12,000 or less than 4000 Assessment/Plan - Problem List (1) Sepsis Impression: Resolved overnight since admission 06/15/18 Secondary to diabetic foot abscess with suspected underlying chronic osteomyelitis. Continue "early-goal directed" treatment with IV abx's, fluids, pain control and follow up on blood and wound cultures taken in ED. Day #2 Zosyn/Vancomycin MRI of left foot This a.m. does not show any osteomyelitis. It appears to be simple cellulitis. Not even an abscess to drain. Surgical debridement was anticipated But since this does not look as bad as he thought it was going to be, Dr. Abebe is canceling tomorrow's OR date. Qualifiers: Sepsis type: sepsis due to unspecified organism Qualified Code(s): A41.9 - Sepsis, unspecified organism (2) Chronic osteomyelitis ruled out Conclusion/Plan: Left foot chronic osteomyelitis suspected due to patients chronicity of months of left foot pain with associated non-healing diabetic foot ulcer between the 4th/5th digit with now foul-smelling purulent drainage. MRI this am does not show evidence for this. ESR, CRP ordered. On empiric IV abx zosyn and vanco to cover for MRSA/MSSA and anaerobes. Wound culture to follow from purulent drainage of wound site. (3) Diabetes mellitus, insulin dependent (IDDM), uncontrolled Conclusion/Plan: Patient saw PCP in early may with a HgbA1c of approximately 10%, ws 10.3 back in 06/01/15, uncontrolled and with now glycemic excursions in the setting of left foot abscess and pain which are causing hyperglycemic excursions. Would place back on his Lantus solostar 18 units sq daily along with correctional ISS high dose for bolus coverage. Diabetic education and teaching, dietitian consult placed. Sales Assistant has seen him, she recommends in going on low dose coverage sliding scale because he gets hypoglycemic. She is also making arrangements for the primary care provider to do a referral to the diabetic education classes so that it makes it easier for him to do training as opposed to going to the [facility]. He will continue to see plier worker. Qualifiers: Glycemic state: with hyperglycemia Qualified Code(s): E10.65 - Type 1 diabetes mellitus with hyperglycemia (4) Left foot pain Conclusion/Plan: Place on Dilaudid and oxycodone for break-through pain. Has underlying "painful" Diabetic neuropathy for which he takes gabapentin, would titrate to therapeutic goal. 1 mg in the emergency room was not covering him, so he is on 2 mg and he feels that is adequate. (5) Diabetic neuropathy associated with type 1 diabetes mellitus Conclusion/Plan: Resume Neurontin and titrate to therapeutic goal. Qualifiers: Diabetes mellitus complication detail: diabetic polyneuropathy Qualified Code(s): E10.42 - Type 1 diabetes mellitus with diabetic polyneuropathy (6) HTN (hypertension) Conclusion/Plan: Place on lopressor or GENA-inh with existing DM nephropathy to control for BP excursions which likely are infectious/pain-induced. He is on metoprolol 12.5 mg p.o. twice daily. In the face of hypoglycemia that is worrisome to him, I do not think that push that. He should be on an GENA inhibitor. We will start him on lisinopril 5 mg (7) Foot abscess, left, not present. Conclusion/Plan: Incision, drainage done. No debridement necessary. (8) Tobacco dependence Conclusion/Plan: Chronic pipe-tobacco use. Likely contributing to his poor circulation and com pounding his healing process of his left foot cellulitis/abscess. Would educate and eligibility counselor on smoking cessation and offer nicotine replacement tx. He is interested in stopping and asks for help. Start Wellbutrin, nicotine patch.
[2018-06-16] MEDS ORDERED: INSULIN ASPART 300 UNIT/3 ML PEN SUBQ SCH (08:00)
[2018-06-16] MEDS ORDERED: diazePAM 5 MG TABLET PO STA (08:14)
[2018-06-16] MEDS: INSULIN ASPART 300 UNIT/3 ML PEN SUBQ SCH ×4 (08:26→21:10)
[2018-06-16] MEDS: POLYETHYLENE GLYCOL 3350 17 GM PACKET PO SCH (08:27)
[2018-06-16] MEDS ORDERED: GADOBUTROL 7.5 MMOL/7.5 ML VIAL ONE (08:29)
[2018-06-16] MEDS ORDERED: VANCOMYCIN INJ 1.5 GM in SODIUM CHLORIDE 0.9% 500 ML IV SCH (10:00)
[2018-06-16] MEDS ORDERED: GADOBUTROL 7.5 MMOL/7.5 ML VIAL IVP ONE ×2 (10:36)
[2018-06-16] MEDS: FAMOTIDINE 20 MG TABLET PO SCH ×2 (11:44→21:49)
[2018-06-16] MEDS: INSULIN GLARGINE 300 UNIT/3 ML PEN SUBQ SCH (11:44)
[2018-06-16] MEDS: VANCOMYCIN INJ 1 GM, VANCOMYCIN INJ 250 MG in SODIUM CHLORIDE 0.9% 250 ML IV SCH ×2 (11:45→17:46)
[2018-06-16] MEDS: METOPROLOL TARTRATE 25 MG TABLET PO SCH ×2 (11:52→21:49)
[2018-06-16] MEDS: ENOXAPARIN 40 MG/0.4 ML SYRINGE SUBQ SCH (12:09)
--- NOTE | 2018-06-16 12:17 | PROVIDER PROGRESS NOTE ---
Subjective - Prog Note Date Prog Note Date: 06/16/18 Prog Note Time: 12:12 - Subjective Pt reports feeling: Improved (Still painful but less swollen and red from last night.) Objective - Vital Signs/Intake & Output Vital Signs: Vital Signs x48h Pulse Resp BP BP Pulse Ox 06/16/18 11:52 164/104 H 06/16/18 08:00 88 19 06/16/18 07:02 79 11 L 124/89 H 100 06/16/18 06:00 75 10 L 123/77 100 06/16/18 05:00 77 12 132/88 H 100 Intake & Output: Intake & Output 06/13/18 06/14/18 06/15/18 06/16/18 23:59 23:59 23:59 23:59 Intake Total 100 1960.00 Output Total 800 1300 Balance -700 660.00 - Lab Results Fish Bones: 06/16/18 05:10 06/16/18 05:10 Other Labs: Lab Results x24hrs 06/16/18 06/16/18 06/16/18 Range/Units 11:31 05:10 05:10 WBC (4.8-10.8) x10^3/uL RBC (4.70-6.10) 10^6/uL Hgb (14.0-18.0) g/dL Hct (42.0-52.0) % MCV (80.0-94.0) fL MCH (27.0-31.0) pg MCHC (32.0-36.0) g/dL RDW (12.0-15.0) % Plt Count (130-450) 10^3/uL MPV (7.4-11.4) fL Neut # (Auto) (1.5-6.6) 10^3/uL Lymph # (Auto) (1.5-3.5) 10^3/uL [place] # (Auto) (0.0-1.0) 10^3/uL Eos # (Auto) (0.0-0.7) 10^3/uL Baso # (Auto) (0.0-0.1) 10^3/uL Absolute Nucleated RBC x10^3/uL Nucleated RBC % /100WBC ESR 7 (0-15) mm/Hr Sodium (135-145) mmol/L Potassium (3.5-5.0) mmol/L Chloride (101-111) mmol/L Carbon Dioxide (21-32) mmol/L Anion Gap (6-13) BUN (6-20) mg/dL Creatinine (0.6-1.2) mg/dL Estimated GFR (MDRD) (>89) Glucose (70-100) mg/dL POC Whole Bld Glucose 179 H (70 - 100) mg/dL Glycated Hemoglobin (4.6-6.2) % Estim Average Glucose (70-100) Lactic Acid (0.5-2.2) mmol/L Calcium (8.5-10.3) mg/dL Phosphorus (2.5-4.6) mg/dL Iron (45-182) ug/dL TIBC (250-450) ug/dL % Saturation (20-50) % Transferrin (180-329) mg/dL Total Bilirubin (0.2-1.0) mg/dL AST (10-42) IU/L ALT (10-60) IU/L Alkaline Phosphatase (42-121) IU/L C-Reactive Protein (0-1.0) mg/dL Total Protein (6.7-8.2) g/dL Albumin (3.2-5.5) g/dL Globulin (2.1-4.2) g/dL Albumin/Globulin Ratio (1.0-2.2) Triglycerides 82 ( - 149) mg/dL Cholesterol 115 ( - 199) mg/dL LDL Cholesterol, Calc 58 ( - 129) mg/dL VLDL Cholesterol 16 mg/dL HDL Cholesterol 41 L (60 - ) mg/dL LDL/HDL Ratio 1.4 (<3.6) Cholesterol/HDL Ratio 2.8 (<5.0) Lipase (22-51) U/L Influenza A (Rapid) (Negative) Influenza B (Rapid) (Negative) MRSA Surveill Initial (NEGATIVE) 06/16/18 06/16/18 06/15/18 Range/Units 05:10 05:10 22:57 WBC 8.2 (4.8-10.8) x10^3/uL RBC 4.60 L (4.70-6.10) 10^6/uL Hgb 13.7 L (14.0-18.0) g/dL Hct 42.1 (42.0-52.0) % MCV 91.5 (80.0-94.0) fL MCH 29.8 (27.0-31.0) pg MCHC 32.5 (32.0-36.0) g/dL RDW 13.4 (12.0-15.0) % Plt Count 153 (130-450) 10^3/uL MPV 9.0 (7.4-11.4) fL Neut # (Auto) 5.0 (1.5-6.6) 10^3/uL Lymph # (Auto) 2.2 (1.5-3.5) 10^3/uL [place] # (Auto) 0.8 (0.0-1.0) 10^3/uL Eos # (Auto) 0.2 (0.0-0.7) 10^3/uL Baso # (Auto) 0.0 (0.0-0.1) 10^3/uL Absolute Nucleated RBC 0.01 x10^3/uL Nucleated RBC % 0.1 /100WBC ESR (0-15) mm/Hr Sodium 135 (135-145) mmol/L Potassium 3.6 (3.5-5.0) mmol/L Chloride 98 L (101-111) mmol/L Carbon Dioxide 29 (21-32) mmol/L Anion Gap 8.0 (6-13) BUN 12 (6-20) mg/dL Creatinine 0.6 (0.6-1.2) mg/dL Estimated GFR (MDRD) 148 (>89) Glucose 195 H (70-100) mg/dL POC Whole Bld Glucose 183 H (70 - 100) mg/dL Glycated Hemoglobin (4.6-6.2) % Estim Average Glucose (70-100) Lactic Acid (0.5-2.2) mmol/L Calcium 8.6 (8.5-10.3) mg/dL Phosphorus 3.4 (2.5-4.6) mg/dL Iron 37 L (45-182) ug/dL TIBC 252 (250-450) ug/dL % Saturation 15 L (20-50) % Transferrin 180 (180-329) mg/dL Total Bilirubin (0.2-1.0) mg/dL AST (10-42) IU/L ALT (10-60) IU/L Alkaline Phosphatase (42-121) IU/L C-Reactive Protein (0-1.0) mg/dL Total Protein (6.7-8.2) g/dL Albumin 3.7 (3.2-5.5) g/dL Globulin (2.1-4.2) g/dL Albumin/Globulin Ratio (1.0-2.2) Triglycerides ( - 149) mg/dL Cholesterol ( - 199) mg/dL LDL Cholesterol, Calc ( - 129) mg/dL VLDL Cholesterol mg/dL HDL Cholesterol (60 - ) mg/dL LDL/HDL Ratio (<3.6) Cholesterol/HDL Ratio (<5.0) Lipase (22-51) U/L Influenza A (Rapid) (Negative) Influenza B (Rapid) (Negative) MRSA Surveill Initial (NEGATIVE) 06/15/18 06/15/18 06/15/18 Range/Units 22:00 20:30 20:30 WBC (4.8-10.8) x10^3/uL RBC (4.70-6.10) 10^6/uL Hgb (14.0-18.0) g/dL Hct (42.0-52.0) % MCV (80.0-94.0) fL MCH (27.0-31.0) pg MCHC (32.0-36.0) g/dL RDW (12.0-15.0) % Plt Count (130-450) 10^3/uL MPV (7.4-11.4) fL Neut # (Auto) (1.5-6.6) 10^3/uL Lymph # (Auto) (1.5-3.5) 10^3/uL [place] # (Auto) (0.0-1.0) 10^3/uL Eos # (Auto) (0.0-0.7) 10^3/uL Baso # (Auto) (0.0-0.1) 10^3/uL Absolute Nucleated RBC x10^3/uL Nucleated RBC % /100WBC ESR (0-15) mm/Hr Sodium (135-145) mmol/L Potassium (3.5-5.0) mmol/L Chloride (101-111) mmol/L Carbon Dioxide (21-32) mmol/L Anion Gap (6-13) BUN (6-20) mg/dL Creatinine (0.6-1.2) mg/dL Estimated GFR (MDRD) (>89) Glucose (70-100) mg/dL POC Whole Bld Glucose (70 - 100) mg/dL Glycated Hemoglobin 9.9 H (4.6-6.2) % Estim Average Glucose 237 H (70-100) Lactic Acid (0.5-2.2) mmol/L Calcium (8.5-10.3) mg/dL Phosphorus (2.5-4.6) mg/dL Iron (45-182) ug/dL TIBC (250-450) ug/dL % Saturation (20-50) % Transferrin (180-329) mg/dL Total Bilirubin (0.2-1.0) mg/dL AST (10-42) IU/L ALT (10-60) IU/L Alkaline Phosphatase (42-121) IU/L C-Reactive Protein 1.6 H (0-1.0) mg/dL Total Protein (6.7-8.2) g/dL Albumin (3.2-5.5) g/dL Globulin (2.1-4.2) g/dL Albumin/Globulin Ratio (1.0-2.2) Triglycerides ( - 149) mg/dL Cholesterol ( - 199) mg/dL LDL Cholesterol, Calc ( - 129) mg/dL VLDL Cholesterol mg/dL HDL Cholesterol (60 - ) mg/dL LDL/HDL Ratio (<3.6) Cholesterol/HDL Ratio (<5.0) Lipase (22-51) U/L Influenza A (Rapid) (Negative) Influenza B (Rapid) (Negative) MRSA Surveill Initial NEGATIVE (NEGATIVE) 06/15/18 06/15/18 06/15/18 Range/Units 20:30 20:30 20:30 WBC (4.8-10.8) x10^3/uL RBC (4.70-6.10) 10^6/uL Hgb (14.0-18.0) g/dL Hct (42.0-52.0) % MCV (80.0-94.0) fL MCH (27.0-31.0) pg MCHC (32.0-36.0) g/dL RDW (12.0-15.0) % Plt Count (130-450) 10^3/uL MPV (7.4-11.4) fL Neut # (Auto) (1.5-6.6) 10^3/uL Lymph # (Auto) (1.5-3.5) 10^3/uL [place] # (Auto) (0.0-1.0) 10^3/uL Eos # (Auto) (0.0-0.7) 10^3/uL Baso # (Auto) (0.0-0.1) 10^3/uL Absolute Nucleated RBC x10^3/uL Nucleated RBC % /100WBC ESR 1 (0-15) mm/Hr Sodium 137 (135-145) mmol/L Potassium 4.0 (3.5-5.0) mmol/L Chloride 98 L (101-111) mmol/L Carbon Dioxide 27 (21-32) mmol/L Anion Gap 12.0 (6-13) BUN 16 (6-20) mg/dL Creatinine 0.8 (0.6-1.2) mg/dL Estimated GFR (MDRD) 106 (>89) Glucose 256 H (70-100) mg/dL POC Whole Bld Glucose (70 - 100) mg/dL Glycated Hemoglobin (4.6-6.2) % Estim Average Glucose (70-100) Lactic Acid 1.7 (0.5-2.2) mmol/L Calcium 9.9 (8.5-10.3) mg/dL Phosphorus (2.5-4.6) mg/dL Iron (45-182) ug/dL TIBC (250-450) ug/dL % Saturation (20-50) % Transferrin (180-329) mg/dL Total Bilirubin 0.6 (0.2-1.0) mg/dL AST 20 (10-42) IU/L ALT 23 (10-60) IU/L Alkaline Phosphatase 100 (42-121) IU/L C-Reactive Protein (0-1.0) mg/dL Total Protein 8.5 H (6.7-8.2) g/dL Albumin 4.9 (3.2-5.5) g/dL Globulin 3.6 (2.1-4.2) g/dL Albumin/Globulin Ratio 1.4 (1.0-2.2) Triglycerides ( - 149) mg/dL Cholesterol ( - 199) mg/dL LDL Cholesterol, Calc ( - 129) mg/dL VLDL Cholesterol mg/dL HDL Cholesterol (60 - ) mg/dL LDL/HDL Ratio (<3.6) Cholesterol/HDL Ratio (<5.0) Lipase 19 L (22-51) U/L Influenza A (Rapid) (Negative) Influenza B (Rapid) (Negative) MRSA Surveill Initial (NEGATIVE) 06/15/18 06/15/18 Range/Units 20:30 20:22 WBC 13.6 H (4.8-10.8) x10^3/uL RBC 5.07 (4.70-6.10) 10^6/uL Hgb 15.4 (14.0-18.0) g/dL Hct 45.2 (42.0-52.0) % MCV 89.2 (80.0-94.0) fL MCH 30.4 (27.0-31.0) pg MCHC 34.0 (32.0-36.0) g/dL RDW 13.5 (12.0-15.0) % Plt Count 179 (130-450) 10^3/uL MPV 8.8 (7.4-11.4) fL Neut # (Auto) 10.1 H (1.5-6.6) 10^3/uL Lymph # (Auto) 2.0 (1.5-3.5) 10^3/uL [place] # (Auto) 1.1 H (0.0-1.0) 10^3/uL Eos # (Auto) 0.2 (0.0-0.7) 10^3/uL Baso # (Auto) 0.1 (0.0-0.1) 10^3/uL Absolute Nucleated RBC 0.00 x10^3/uL Nucleated RBC % 0.0 /100WBC ESR (0-15) mm/Hr Sodium (135-145) mmol/L Potassium (3.5-5.0) mmol/L Chloride (101-111) mmol/L Carbon Dioxide (21-32) mmol/L Anion Gap (6-13) BUN (6-20) mg/dL Creatinine (0.6-1.2) mg/dL Estimated GFR (MDRD) (>89) Glucose (70-100) mg/dL POC Whole Bld Glucose (70 - 100) mg/dL Glycated Hemoglobin (4.6-6.2) % Estim Average Glucose (70-100) Lactic Acid (0.5-2.2) mmol/L Calcium (8.5-10.3) mg/dL Phosphorus (2.5-4.6) mg/dL Iron (45-182) ug/dL TIBC (250-450) ug/dL % Saturation (20-50) % Transferrin (180-329) mg/dL Total Bilirubin (0.2-1.0) mg/dL AST (10-42) IU/L ALT (10-60) IU/L Alkaline Phosphatase (42-121) IU/L C-Reactive Protein (0-1.0) mg/dL Total Protein (6.7-8.2) g/dL Albumin (3.2-5.5) g/dL Globulin (2.1-4.2) g/dL Albumin/Globulin Ratio (1.0-2.2) Triglycerides ( - 149) mg/dL Cholesterol ( - 199) mg/dL LDL Cholesterol, Calc ( - 129) mg/dL VLDL Cholesterol mg/dL HDL Cholesterol (60 - ) mg/dL LDL/HDL Ratio (<3.6) Cholesterol/HDL Ratio (<5.0) Lipase (22-51) U/L Influenza A (Rapid) Negative (Negative) Influenza B (Rapid) Negative (Negative) MRSA Surveill Initial (NEGATIVE) - Diagnostic Imaging Diagnostic Imaging Comments: XR show no bony erosion in forefoot - Other Results/Comments Other Results/Comments: EXAM: Left foot: Minimally swollen; skin wrinkling developing. Marked erythema area is decreasing. 1+ diffusely tender about dorsal forefoot, no flocculence noted. Dried drainage between 4th and 5th toe interspace. No active drainage expressed. No lymphangitis. Sensation decreased (baseline). Moving toes ok. Sepsis Event Note (H) - Evaluation Current Stage of Sepsis: Sepsis Possible source of Sepsis: positive: Skin/soft tissue - Sepsis Criteria Sepsis Criteria: Recorded Heart Rate greater than 90 bpm (CRP 1.6), WBC count greater than 12,000 or less than 4000 Assessment/Plan - Problem List (1) Foot abscess, left Impression: Diabetic foot infection - initial review of MRI scan: infection does not appear to involve bone. Clinically improved after 12 hours of IV antibiotics (decreasing WBC, improved clinical appearance of foot) PLAN: Pending official MRI scan report, will cancel scheduled surgical I&D Fri AM and serial watch foot while in house on IV antibiotics and foot elevation. MRI scan showed no osteomyelitis; non drainable abscess seen SO Dx is likely to be left diabetic foot infection - primarily cellulitis, which is clinically improving on bedrest and IV antibiotics. Continue antibiotics and serial clinical exams.
[2018-06-16] MEDS ORDERED: LIDOCAINE JELLY 2% 5 ML TUBE TOP ONE (12:29)
--- NOTE | 2018-06-16 12:45 | MRI Report ---
Reason: Suspected left foot osteomyelitis Procedure Date: 06/16/2018 Accession Number: [id number] / [id number] Procedure: MRI - Ankle LT W/WO CPT Code: FULL RESULT: EXAM: LEFT ANKLE AND FOOT MRI WITHOUT AND WITH CONTRAST EXAM DATE: 06/16/2018 11:32 AM. CLINICAL HISTORY: Left foot drainage. Diabetes. Concern for osteomyelitis. COMPARISON: Left foot radiography from 06/14/2018. TECHNIQUE: Multiplanar, multisequence T1-weighted and fluid-sensitive sequences of the ankle before and after administration of intravenous contrast. IV contrast: 7 cc Gadavist. Other: None. FINDINGS: Bones: An os navicular variant is present. No acute fracture or bone lesions. No evidence of osteomyelitis. Articular Cartilage: Mild first interphalangeal joint osteoarthritis. Ligaments: The anterior and posterior tibiofibular, anterior and posterior talofibular, and calcaneofibular ligaments are intact. The deep and superficial deltoid and spring ligaments are intact. The collateral ligaments are intact. Anterior Tendons: The tibialis anterior, extensor hallucis longus, and extensor digitorum longus tendons are unremarkable. Medial Tendons: The tibialis posterior, flexor digitorum longus, and flexor hallucis longus tendons are unremarkable. Lateral Tendons: The peroneus brevis and longus are unremarkable. Achilles Tendon: The Achilles tendon is unremarkable. Musculature: Mild edema and enhancement within the visualized muscles. Other: No effusions or synovitis. The contents of the sinus tarsi and tarsal tunnel are unremarkable. No plantar fasciitis. Mild subcutaneous edema and swelling at the dorsal aspect of the foot. Focal subcutaneous edema at the plantar aspect of the fourth web space. No definite drainable abscess is seen. IMPRESSION: 1. Mild subcutaneous edema and swelling of the dorsal aspect of the foot. Mild focal subcutaneous edema at the plantar aspect of the fourth web space which may represent cellulitis. No definite drainable abscess is seen. 2. No evidence of osteomyelitis. 3. Mild first interphalangeal joint osteoarthritis. 4. Mild edema and enhancement within the visualized muscles which may represent strain or myositis. [facility] MUSCULOSKELETAL RADIOLOGY SECTION
[2018-06-16] MEDS: ONDANSETRON ODT 4 MG TABLET TL PRN (13:56)
[2018-06-16] MEDS: PROCHLORPERAZINE 10 MG/2 ML VIAL IVP PRN (14:43)
--- NOTE | 2018-06-16 15:10 | CONSULTATION NOTE ---
DATE OF SERVICE: 06/16/2018 Physician: Dominic Abebe MD ORTHOPEDIC INPATIENT CONSULT NOTE REFERRING PHYSICIAN: Dr. Jhonny Nash of the emergency room department. CHIEF COMPLAINT: "My left foot hurts." HISTORY OF PRESENT ILLNESS: Patient is a 43-year-old male, type 1 insulin-dependent diabetic who has had a 3-4 day history of progressive swelling, redness, and pain into his left foot. Patient has rather advanced diabetes and has peripheral diabetic neuropathy and vascular changes from the diabetes. He has had a history of slow healing sores to his leg in the past. No history of any specific diabetic foot infections, however. Patient denies any penetrating trauma to his foot over the last week or so. He initially presented to the emergency room two nights ago complaining of some redness and swelling to his foot. He was not noted to have a fever, his white count was normal. He was discharged on oral antibiotics. He presented himself several days later in the emergency room last night, now complaining of progressive symptoms with increased pain, difficulty walking, and now had some spontaneous drainage coming out from between his fourth and fifth toe interspace. His white count was now elevated to 13,600, and he was admitted to the hospital service for IV antibiotics and orthopedic evaluation. In speaking with the patient today, just in the last 12 hours while he has been on IV antibiotics, he has noted a clinical improvement in his foot. Although it is still somewhat tender, it is much less swollen, much less erythematous. EXAMINATION: Patient's left foot shows some mild swelling present in the forefoot. The area that was marked for erythema shows that the erythema is decreasing. There is no fluctuance noted on palpation of his left forefoot. It is still somewhat diffusely tender. Patient has some dried drainage in the 4th and 5th webspace area of his foot. Unable to express any drainage in this area when squeezing the forefoot. Neurovascularly, he is unchanged with diminished sensory on clinical examination today. LABORATORY: White count has diminished to 8200 this morning, and the left shift has improved. IMAGES X-rays show no obvious bony erosions or other destructive changes in his bones of his foot. MRI scan of the foot shows no osteomyelitis in the foot, nor any drainable abscess. ASSESSMENT AND PLAN: Left diabetic foot infection - appears now to be primarily a cellulitis with only a small abscess that does not appear to be significant enough to require surgical drainage. The patient is clinically improving already with 12 hours of IV antibiotics. PLAN: Initially I had scheduled the patient for surgical incision and drainage of his abscess Wednesday morning. This will be canceled in view of his clinical improvement and the MRI scan findings. Continue him on antibiotics, local heat to the foot, elevation, and serial examinations of his foot and see if we will be able to just treat this nonoperatively. TD: 06/16/2018 13:24 FLAVIA
[2018-06-16] MEDS: HYDROmorphone 2 MG/ML VIAL IVP PRN (16:22)
[2018-06-16] MEDS: SODIUM CHLORIDE FLUSH 0.9% 10 ML SYRINGE IVP PRN (16:48)
[2018-06-16] MEDS: SODIUM CHLORIDE 0.9% 1,000 ML IV SCH (18:23)
[2018-06-16] MEDS ORDERED: PROMETHAZINE INJ 25 MG in SODIUM CHLORIDE 0.9% 50 ML IV PRN (18:42)
[2018-06-16] MEDS: buPROPion SR 100 MG TABLET PO SCH (19:17)
[2018-06-16] MEDS: ATORVASTATIN 40 MG TABLET PO SCH (21:49)
[2018-06-16] MEDS: DULoxetine 30 MG CAPSULE PO SCH (21:49)
[2018-06-17] MEDS: PIPERACILLIN/TAZOBACTAM 4.5 GM in SODIUM CHLORIDE 0.9% MINIBAG 100 ML IV SCH ×2 (01:58→08:05)
[2018-06-17] MEDS: SODIUM CHLORIDE FLUSH 0.9% 10 ML SYRINGE IVP SCH ×4 (01:59→23:48)
[2018-06-17] MEDS: ONDANSETRON ODT 4 MG TABLET TL PRN ×2 (02:16→08:00)
[2018-06-17] MEDS: HYDROmorphone 2 MG/ML VIAL IVP PRN ×9 (02:16→23:46)
[2018-06-17] MEDS: oxyCODONE 5 MG TABLET PO PRN ×3 (02:16→22:08)
[2018-06-17] MEDS: VANCOMYCIN INJ 1 GM, VANCOMYCIN INJ 250 MG in SODIUM CHLORIDE 0.9% 250 ML IV SCH ×2 (02:31→10:57)
[2018-06-17] MEDS: GABAPENTIN 300 MG CAPSULE PO SCH ×4 (07:21→20:40)
[2018-06-17] MEDS: METOPROLOL TARTRATE 25 MG TABLET PO SCH ×2 (08:01→20:40)
[2018-06-17] MEDS: FAMOTIDINE 20 MG TABLET PO SCH ×2 (08:03→20:40)
[2018-06-17] MEDS: buPROPion SR 100 MG TABLET PO SCH ×2 (08:03→15:19)
[2018-06-17] MEDS: POLYETHYLENE GLYCOL 3350 17 GM PACKET PO SCH (08:04)
[2018-06-17] MEDS: ENOXAPARIN 40 MG/0.4 ML SYRINGE SUBQ SCH (08:04)
[2018-06-17] MEDS: NICOTINE 7 MG PATCH TOP SCH (08:04)
[2018-06-17] MEDS: INSULIN GLARGINE 300 UNIT/3 ML PEN SUBQ SCH (08:06)
[2018-06-17] MEDS: INSULIN ASPART 300 UNIT/3 ML PEN SUBQ SCH ×4 (08:08→20:41)
[2018-06-17 09:47] LABS: VANCOMYCIN,TROUGH 16.4 ug/mL (10.0-20.0)
[2018-06-17] MEDS: LISINOPRIL 5 MG TABLET PO SCH (10:09)
--- NOTE | 2018-06-17 11:21 | PROVIDER PROGRESS NOTE ---
Subjective - Prog Note Date Prog Note Date: 06/17/18 Prog Note Time: 11:19 - Subjective Pt reports feeling: Improved (Less painful) Objective - Vital Signs/Intake & Output Vital Signs: Vital Signs x48h Temp Pulse Resp BP BP Pulse Ox 06/17/18 08:01 125/78 06/17/18 07:12 36.5 C 80 18 125/78 98 Intake & Output: Intake & Output 06/14/18 06/15/18 06/16/18 06/17/18 23:59 23:59 23:59 23:59 Intake Total 100 3376.00 1505 Output Total 800 2775 900 Balance -700 601.00 605 - Lab Results Fish Bones: 06/16/18 05:10 06/16/18 05:10 Other Labs: Lab Results x24hrs 06/17/18 06/17/18 06/17/18 Range/Units 11:13 09:33 07:16 POC Whole Bld Glucose 219 H 121 H (70 - 100) mg/dL Last Dose Date 06/17/2018 Last Dose Time 04:01 Vancomycin Trough 16.4 (10.0-20.0) ug/mL 06/17/18 06/16/18 06/16/18 Range/Units 02:51 20:29 17:06 POC Whole Bld Glucose 83 128 H 161 H (70 - 100) mg/dL Last Dose Date Last Dose Time Vancomycin Trough (10.0-20.0) ug/mL 06/16/18 Range/Units 11:31 POC Whole Bld Glucose 179 H (70 - 100) mg/dL Last Dose Date Last Dose Time Vancomycin Trough (10.0-20.0) ug/mL - Other Results/Comments Other Results/Comments: EXAM: Left foot: Less swollen forefoot; less erythema; less tender forefoot. No lymphangitis. Good toe and ankle AROM. Sensation unchanged Sepsis Event Note (H) - Evaluation Current Stage of Sepsis: Resolved Possible source of Sepsis: positive: Skin/soft tissue - Sepsis Criteria Sepsis Criteria: Recorded Heart Rate greater than 90 bpm (CRP 1.6), WBC count greater than 12,000 or less than 4000 Assessment/Plan - Problem List (1) Cellulitis of left foot Impression: improving PLAN: Switch to oral antibiotics and reevaluate in 24 hours. If he continues to improve clinically and stays afebrile, can be discharged to outpt care - oral antibiotics x 2 weeks and follow up with PCP.
[2018-06-17] MEDS: CIPROFLOXACIN 250 MG TABLET PO SCH ×2 (11:25→20:39)
[2018-06-17] MEDS: PROCHLORPERAZINE 10 MG/2 ML VIAL IVP PRN (12:24)
[2018-06-17] MEDS: AMOXICILLIN 250 MG CAPSULE PO SCH ×2 (12:25→20:40)
[2018-06-17] MEDS: AMOX/CLAV 500 MG/125 MG TABLET PO SCH ×2 (12:25→20:40)
[2018-06-17] MEDS ORDERED: FERROUS SULFATE 325 MG TABLET PO SCH (14:00)
[2018-06-17] MEDS ORDERED: MULTIVITAMIN W/MINERALS TABLET PO SCH (14:00)
[2018-06-17] MEDS: SODIUM CHLORIDE FLUSH 0.9% 10 ML SYRINGE IVP PRN (14:22)
[2018-06-17] MEDS: SODIUM CHLORIDE 0.9% 1,000 ML IV SCH (14:41)
--- NOTE | 2018-06-17 17:14 | PROVIDER PROGRESS NOTE ---
Objective - Vital Signs/Intake & Output Reviewed Vital Signs: Yes Vital Signs: Vital Signs x48h Temp Pulse Resp BP Pulse Ox 06/17/18 15:24 36.6 C 83 18 148/86 H 100 Intake & Output: Intake & Output 06/14/18 06/15/18 06/16/18 06/17/18 23:59 23:59 23:59 23:59 Intake Total 100 3376.00 2955 Output Total 800 2775 3310 Balance -700 601.00 -355 - Objective General Appearance: positive: No acute distress, Alert Eyes Bilateral: positive: PERRL, EOMI ENT: positive: Pharynx nml Neck: positive: No JVD. negative: Stiff neck, Carotid bruit Respiratory: positive: Chest non-tender. negative: Wheezes, Rales, Rhonchi Cardiovascular: positive: Regular rate & rhythm. negative: Gallop/S4, Friction rub Abdomen: positive: Non-tender, No organomegaly, Nml bowel sounds, No distention Skin: positive: Warm, Dry Extremities: positive: Full ROM, Other (Redness of cellulitis is staying within the same geographical range as drawn in by pen. Deep ulcer on the plantar surface between the fourth and fifth toe is unchanged.) Neurologic/Psychiatric: positive: Oriented x3, CN's nml (2-12), Motor nml. negative: Sensation nml - Lab Results Fish Bones: 06/16/18 05:10 06/16/18 05:10 Other Labs: Lab Results x24hrs 06/17/18 06/17/18 06/17/18 Range/Units 16:25 11:13 09:33 POC Whole Bld Glucose 242 H 219 H (70 - 100) mg/dL Last Dose Date 06/17/2018 Last Dose Time 04:01 Vancomycin Trough 16.4 (10.0-20.0) ug/mL 06/17/18 06/17/18 06/16/18 Range/Units 07:16 02:51 20:29 POC Whole Bld Glucose 121 H 83 128 H (70 - 100) mg/dL Last Dose Date Last Dose Time Vancomycin Trough (10.0-20.0) ug/mL 06/16/18 Range/Units 17:06 POC Whole Bld Glucose 161 H (70 - 100) mg/dL Last Dose Date Last Dose Time Vancomycin Trough (10.0-20.0) ug/mL ABX Reporting Has patient been on IV antibiotics over the past 48 hours?: Yes Sepsis Event Note (H) - Evaluation Current Stage of Sepsis: Resolved Possible source of Sepsis: positive: Skin/soft tissue - Sepsis Criteria Sepsis Criteria: Recorded Heart Rate greater than 90 bpm (CRP 1.6), WBC count greater than 12,000 or less than 4000 Assessment/Plan - Problem List (1) Diabetic foot infection Impression: His initial diagnosis was that of sepsis with osteomyelitis of the foot. Sepsis has resolved over overnight stay and by yesterday he was fine. No longer met criteria. The diagnosis of osteomyelitis has also fallen by the [place] since MRI confirms it is cellulitis in a diabetic. He has had debridement by wound nurse. He has been seen by orthopedic surgery. He has been on IV antibiotic therapy, day #2 into #3. Staph aureus has grown out of the wound. Sensitivities pending. Plan: He has improved on physical exam. We will stop IV antibiotics and switch him over to Augmentin 2000/125 p.o. twice daily as well as quinolone as recommended by [place] antibiotic guide. We will watch for recurrence of fever or elevated white cell count. If he fails oral antibiotics while inpatient, will need to go back to IV antibiotics. Case discussed with Dr. Abebe. He is in agreement. (2) Diabetes mellitus, insulin dependent (IDDM), uncontrolled Conclusion/Plan: Patient saw PCP in early may with a HgbA1c of approximately 10%, ws 10.3 back in 06/01/15, uncontrolled and with now glycemic excursions in the setting of left foot abscess and pain which are causing hyperglycemic excursions. Placed back on his Lantus solostar 18 units sq daily along with correctional ISS high dose for bolus coverage. Diabetic education and teaching, dietitian consult placed. [employer] saw him 06/16, she recommends going on low dose coverage sliding scale because he gets hypoglycemic. She is also making arrangements for the primary care provider to do a referral to the diabetic education classes so that it makes it easier for him to do training as opposed to going to the [facility]. He will continue to see software administrator. Today, he has had 2 mornings in a row for hypoglycemia. I have reduced his insulin to 16 units of lantus. Nutrition will give 3 units fixed dose w meals. Qualifiers: Glycemic state: with hyperglycemia Qualified Code(s): E10.65 - Type 1 diabetes mellitus with hyperglycemia (3) Left foot pain Conclusion/Plan: Place on Dilaudid and oxycodone for break-through pain. Has underlying "painful" Diabetic neuropathy for which he takes gabapentin, would titrate to therapeutic goal. 1 mg in the emergency room was not covering him, so he is on 2 mg and he feels that is adequate. No change today. (4) Diabetic neuropathy associated with type 1 diabetes mellitus Conclusion/Plan: Resume Neurontin and titrate to therapeutic goal. Qualifiers: Diabetes mellitus complication detail: diabetic polyneuropathy Qualified Code(s): E10.42 - Type 1 diabetes mellitus with diabetic polyneuropathy (5) HTN (hypertension) Conclusion/Plan: Place on lopressor or GENA-inh with existing DM nephropathy to control for BP excursions which likely are infectious/pain-induced. He is on metoprolol 12.5 mg p.o. twice daily. In the face of hypoglycemia that is worrisome to him, I do not think that push that. He should be on an GENA inhibitor. We will start him on lisinopril 5 mg. Blood pressure has tolerated that. He has been between 125-148 systolic, 78-86 diastolic. (6) Foot abscess, left, not present. Conclusion/Plan: Incision, drainage done. No debridement necessary. (7) Tobacco dependence Conclusion/Plan: Chronic pipe-tobacco use. Likely contributing to his poor circulation and compounding his healing process of his left foot cellulitis/abscess. Would educa te and area counselor on smoking cessation and offer nicotine replacement tx. He is interested in stopping and asks for help. Start Wellbutrin, nicotine patch.
[2018-06-17] MEDS ORDERED: LIDOCAINE JELLY 2% 6 ML JEL.PF.APP TOP ONE (18:20)
[2018-06-17] MEDS: DULoxetine 30 MG CAPSULE PO SCH (20:39)
[2018-06-17] MEDS: ATORVASTATIN 40 MG TABLET PO SCH (20:40)
[2018-06-18] MEDS: SODIUM CHLORIDE 0.9% 1,000 ML IV SCH ×2 (02:52→07:36)
[2018-06-18] MEDS: GABAPENTIN 300 MG CAPSULE PO SCH (06:24)
[2018-06-18] MEDS: SODIUM CHLORIDE FLUSH 0.9% 10 ML SYRINGE IVP SCH (07:50)
[2018-06-18] MEDS: AMOX/CLAV 500 MG/125 MG TABLET PO SCH (08:36)
[2018-06-18] MEDS: AMOXICILLIN 250 MG CAPSULE PO SCH (08:36)
[2018-06-18] MEDS: LISINOPRIL 5 MG TABLET PO SCH (08:36)
[2018-06-18] MEDS: FAMOTIDINE 20 MG TABLET PO SCH (08:36)
[2018-06-18] MEDS: buPROPion SR 100 MG TABLET PO SCH (08:36)
[2018-06-18] MEDS: CIPROFLOXACIN 250 MG TABLET PO SCH (08:36)
[2018-06-18] MEDS: METOPROLOL TARTRATE 25 MG TABLET PO SCH (08:37)
[2018-06-18] MEDS: ENOXAPARIN 40 MG/0.4 ML SYRINGE SUBQ SCH (08:37)
[2018-06-18] MEDS: POLYETHYLENE GLYCOL 3350 17 GM PACKET PO SCH (08:37)
[2018-06-18 08:38] VITALS: BP 149/81
[2018-06-18] MEDS: NICOTINE 7 MG PATCH TOP SCH (08:44)
--- NOTE | 2018-06-18 08:44 | Discharge Plan ---
Discharge Plan Disposition: Home, Self Care Condition: Good Prescriptions: Amoxicillin/Potassium Clav [Augmentin Xr 1,000-62.5 Tab] 2 each PO BID #14 tab.er.12h Ciprofloxacin HCl 750 mg PO BID #7 tablet HYDROmorphone [Dilaudid] 2 mg PO Q4H #30 tablet Diet: Diabetic Activity Restrictions: Wt Bearing as Tolerated Shower Restrictions: Yes (You may take a shower, but try and keep the foot not soaking in water. ) Driving Restrictions: No Additional Instructions or Follow Up instructions: You were admitted to the hospital because of a diabetic foot infection. We tho ught that you may have a bone infection or an abscess that would need surgery with debridement or a possible amputation of your fourth and fifth toes. The MRI does not show osteomyelitis nor does it show abscess and we were able to successfully treat your foot with simple debridement at the bedside of the ulcer that is at the base of your left foot between your fourth and fifth toes. You will need to follow-up with the wound management at the [facility]. We have called Dr. Mejia office to let him know he needs to make a referral for you to go there. Call Dr. Mejia office on Wednesday and make sure the office does that and ask for an appointment to see him. I have given you my card so that if a referral has not been made by the afternoon, you can call me and I can make sure we move forward. You also need to finish antibiotics. You are on a high dose of 2 antibiotics. Diabetic feet infections tend to have multiple bacteria and we are covering numerous bacteria. Take a probiotic twice a day to help your bowels remain in good health while on high-dose antibiotics. You also have severe pain in your foot. We have prescribed Dilaudid 2 mg every 4 hours as needed. Try to use that medication sparingly. Elevate your foot so it does not throb as much. Take Tylenol and Motrin with a Dilaudid to help work better. Please see Dr. Mejia in the next week for follow-up. He needs to go over your sugars and look at your foot. You took pictures on your phone before you left today so he can compare with the foot looks like today and then. No Smoking: If you smoke, Please STOP! Call for help. Follow-up with: Jim Mejia MD [Provider Admit Priv/Credential] - Gudelia Chase ARNP [Provider Admit Priv/Credential] -
[2018-06-18] MEDS: INSULIN ASPART 300 UNIT/3 ML PEN SUBQ SCH (08:49)
[2018-06-18] MEDS ORDERED: INSULIN GLARGINE 300 UNIT/3 ML PEN SUBQ SCH ×2 (09:00)
--- NOTE | 2018-06-18 10:11 | PROVIDER PROGRESS NOTE ---
Subjective - Prog Note Date Prog Note Date: 06/18/18 Prog Note Time: 10:08 - Subjective Pt reports feeling: Improved (Less painful.) Objective - Vital Signs/Intake & Output Vital Signs: Vital Signs x48h Temp Pulse Resp BP BP Pulse Ox 06/18/18 08:37 149/81 H 06/18/18 07:52 36.9 C 103 H 12 149/89 H 98 Intake & Output: Intake & Output 06/15/18 06/16/18 06/17/18 06/18/18 23:59 23:59 23:59 23:59 Intake Total 100 3376.00 4075 1693.75 Output Total 800 2775 4840 1100 Balance -700 601.00 -765 593.75 - Lab Results Fish Bones: 06/16/18 05:10 06/16/18 05:10 Other Labs: Lab Results x24hrs 06/18/18 06/17/18 06/17/18 Range/Units 07:27 20:29 16:25 POC Whole Bld Glucose 204 H 122 H 242 H (70 - 100) mg/dL 06/17/18 Range/Units 11:13 POC Whole Bld Glucose 219 H (70 - 100) mg/dL - Other Results/Comments Other Results/Comments: EXAM: Minimal forefoot tenderness. Mild erythema. Minimal swelling. No lymphangitis. N/V same Sepsis Event Note (H) - Evaluation Current Stage of Sepsis: Resolved Possible source of Sepsis: positive: Skin/soft tissue - Sepsis Criteria Sepsis Criteria: Recorded Heart Rate greater than 90 bpm (CRP 1.6), WBC count greater than 12,000 or less than 4000 Assessment/Plan - Problem List (1) Cellulitis of left foot Impression: Improved. Afebrile x 24 hours on oral antibiotics PLAN: Discharge home on oral antibiotics. Follow up with wound care and with his insurance business analyst, as previously scheduled.
--- NOTE | 2018-06-18 13:15 | DISCHARGE SUMMARY ---
Physician: Jamaica Keane MD DATE OF ADMISSION: 06/15/2018 DATE OF DISCHARGE: 06/18/2018 DISCHARGE DIAGNOSES 1. Sepsis. 2. Diabetic foot cellulitis. 3. Type 1 diabetes mellitus, with complications, on long-term insulin. 4. Diabetic neuropathy. 5. Hypertension. 6. Tobacco abuse. DISCHARGE MEDICATIONS 1. Augmentin with 2000 mg amoxicillin 4/125 mg clavulanic acid B.i.d.. 2. Ciprofloxacin 750 mg p.o. b.i.d. 3. Biotin 5 mg tablet daily. 4. Calcium with magnesium and zinc daily. 5. Vitamin D3 200 units daily. 6. Coconut oil daily. 7. Cymbalta 60 mg daily. 8. Gabapentin 1800 mg p.o. b.i.d. 9. Guaifenesin 600 mg p.o. b.i.d. 10. Lantus currently at 18 units subcutaneous daily. 11. Lispro 1-5 units subcutaneous sliding scale a.c. t.i.d. 12. Fish oil tablets 500 mg daily. 13. Dilaudid 2 mg every 4 hours as needed, #30. PRINCIPAL PROCEDURES 1. Wound culture showing Staph aureus that is sensitive. 2. Blood cultures that are negative. 3. Ankle and foot MRI, left foot, showing mild subcutaneous edema and swelling of the dorsal aspect of the foot. Mild focal subcutaneous edema at the plantar aspect of the fourth webspace, representing cellulitis. No abscess. No osteomyelitis. 4. Orthopedic consult with Dominic Abebe. HOSPITAL COURSE: He is a 43-year-old, white male who has a history of type 1 diabetes mellitus for over 30 years now. Complications include retinopathy, nephropathy and neuropathy. Unfortunately, he is a chronic tobacco smoker. He was seen in the emergency room for a diabetic left foot infection the day before admission, placed on Cipro. Labs were normal. This morning, he had fever, body aches, and the area on his foot opened up and started draining foul-smelling fluid. He came to the emergency room, where he was found to meet the criteria of sepsis with a white cell count of 13.6 and tachycardia at 125. Pain was uncontrolled, glucose 256. Temperature was 37.6. Cultures were obtained for foot and blood. Staphylococcus aureus grew out, but it is known that diabetic foot infections are multi-bacterial. MRI of the foot was done to make sure he did not have osteomyelitis or drainable abscess requiring surgery. Orthopedic Surgery was consulted with Dr. Dominic Abebe. The patient responded well to Zosyn and vancomycin. He required Dilaudid for severe, severe, throbbing foot pain. The ulcer was debrided and cleaned by wound care nurse. He has been referred to the medical ambulatory clinic. However, his primary care provider must provide authorization or get authorization for this to happen. The wound nurse has contacted Jim Mejia' office in order to expedite that. Patient responded well to empiric antibiotic therapy and the de-lizbet of the fluid collection. He was transitioned to oral antibiotic in the form of Augmentin 2000/clavulanic acid 125 b.i.d., as well as Cipro 750 b.i.d. as recommended by [place] antibiotic guide. Dr. Abebe was in agreement with that. Patient remained afebrile overnight. On the morning of discharge, we took pictures of his feet on his phone, so we could show Dr. Mejia what the foot looked like. It improved tremendously with receding redness and heat and swelling over the 24 hours of oral antibiotics. He did not have a fever during his stay. White cell count normalized by the second day. He is discharged in stable condition. He is to heel walk on that foot, elevate the foot as much as possible. He may shower, just do not soak the foot in water. Keep the wound clean and dry. See the [facility] as soon as possible in the next few days. I have counselled him about tobacco abuse and to stop smoking. BP is elevated during his stay to 140's systolic and he may need blood pressure medicine the outpatient setting. PHYSICAL EXAMINATION VITAL SIGNS: Temperature is 36.9, pulse is 103, blood pressure 149/89, respirations 12, 98% on room air. GENERAL: He is a thin, slightly cachectic looking, white male, disheveled with a long deshpande that goes down to mid chest. Six feet 2 inches, 68 kg. NECK: Supple with shotty adenopathy. LUNGS: Clear to auscultation and percussion. HEART: PMI is normally placed with a regular rate and rhythm. No murmurs, rubs, or gallops. ABDOMEN: Soft, nontender. Normal bowel sounds. No organomegaly. NEUROLOGIC: He is sitting up in the bed on his own. Able to transfer to a standing position. No ataxia. EXTREMITIES: Foot is very painful as he puts it down, and blood rushes to his foot and causes throbbing pain. In the right medial malleoli, he has a dime- sized skin breakdown that was present on admission. Right now, it is just a simple blister that has remained uninfected, no surrounding redness or cellulitis. I told him to make sure he keeps that clean and dry as well and keeps an eye on it. Greater than 30 minutes was spent coordinating discharge. TD: 06/18/2018 11:59 FLAVIA
== END 2018-06-18 09:55 | disposition home or self-care (01) | DRG 872 ==
LOC: ED 19:24 → ICU 21:09 → MS2 06-16 17:32
PROVIDERS: ADMIT Family Medicine; ATTEND Specialist
DX: A41.01 Sepsis due to Methicillin susceptible Staphylococcus aureus (principal); L03.116 Cellulitis of left lower limb; L97.321 Non-pressure chronic ulcer of left ankle limited to breakdown of skin; E10.69 Type 1 diabetes mellitus with other specified complication; E10.621 Type 1 diabetes mellitus with foot ulcer; L97.522 Non-pressure chronic ulcer of other part of left foot with fat layer exposed; E10.622 Type 1 diabetes mellitus with other skin ulcer; E10.65 Type 1 diabetes mellitus with hyperglycemia; E10.42 Type 1 diabetes mellitus with diabetic polyneuropathy; E10.319 Type 1 diabetes mellitus with unspecified diabetic retinopathy without macular edema; E10.21 Type 1 diabetes mellitus with diabetic nephropathy; I10 Essential (primary) hypertension; K21.9 Gastro-esophageal reflux disease without esophagitis; F32.9 Major depressive disorder, single episode, unspecified; F41.0 Panic disorder [episodic paroxysmal anxiety]; M81.0 Age-related osteoporosis without current pathological fracture; G89.29 Other chronic pain; F17.290 Nicotine dependence, other tobacco product, uncomplicated; Z79.4 Long term (current) use of insulin
CPT/HCPCS: 36415; 73720; 73723; 80053; 80061; 80069; 80202; 83036; 83540; 83605; 83690; 84466; 85025; 85651; 86140; 87040; 87070; 87150; 87181; 87205; 87275; 87276; 96365; 96375; 99283; A9270; A9585; J1170; J1650; J1815; J3370; J3410; J3490; J7040; Q0162; 83721; 99284

== ENCOUNTER 2018-06-27 15:44 | Outpatient (CLI) | payer MEDICAID ==
--- NOTE | 2018-06-28 11:04 | Ultrasound Report ---
Reason: DIABETIC FOOT ULCER, LEFT, DIABETES MELLITUS, TYPE Procedure Date: 06/27/2018 Accession Number: [id number] / [id number] Procedure: US - Duplex Lwr Ext Arterial Bilat CPT Code: FULL RESULT: EXAM: BILATERAL LOWER EXTREMITY ARTERIAL DOPPLER ULTRASOUND EXAM DATE: 06/27/2018 04:59 PM. CLINICAL HISTORY: Diabetic foot ulcer, left, diabetes mellitus, type. COMPARISON: None. TECHNIQUE: Real-time sonographic vascular imaging was performed by the electrical integrator, utilizing color-flow, Doppler flow, and spectral analysis. Multiple floor representative static images were saved for review. FINDINGS: The bilateral lower extremity arteries demonstrate mild intimal thickening and patchy less than 25% atherosclerotic narrowing visually. Color Doppler demonstrates preserved patency throughout. Spectral Doppler demonstrates preserved brisk upstrokes throughout both lower extremity arterial systems. Right Lower Extremity: POWDERED METAL SUPERVISOR: PSV 83.7 cm/sec. PSFA: PSV 84.2 cm/sec. MSFA: PSV 80.7 cm/sec. DSFA: PSV 67.2 cm/sec. PFA: PSV 54.6 cm/sec. POP: PSV 57.1 cm/sec. GAY: PSV 32.2 cm/sec. ESTHETICS INSTRUCTOR: PSV 42 cm/sec. AIDEE: PSV 23.3 cm/sec. DPA: PSV 50 cm/sec. Left Lower Extremity: POWDERED METAL SUPERVISOR: PSV 141 cm/sec. PSFA: PSV 81.2 cm/sec. MSFA: PSV 70.6 cm/sec. DSFA: PSV 82.9 cm/sec. PFA: PSV 56.6 cm/sec. POP: PSV 35.7 cm/sec. GAY: PSV 29.7 cm/sec. ESTHETICS INSTRUCTOR: PSV 25 cm/sec. AIDEE: PSV 16 cm/sec. DPA: PSV 25 cm/sec. IMPRESSION: Preserved three-vessel blood flow to both ankles with preserved flow to the dorsalis pedis arteries bilaterally. RADIA
== END 2018-06-27 15:45 | disposition home or self-care (01) ==
LOC: DI 15:44
PROVIDERS: ATTEND Family Medicine
DX: E10.621 Type 1 diabetes mellitus with foot ulcer (principal); L97.529 Non-pressure chronic ulcer of other part of left foot with unspecified severity
CPT/HCPCS: 93925